=== PATIENT | female | born 1935 | race Caucasian/White ===

== ENCOUNTER 2017-05-23 09:05 | Observation (INO) | payer MEDICARE, OTHER ==
--- NOTE | 2017-05-23 09:14 | EDM.PDOC ---
ED HPI GENERAL MEDICAL PROBLEM - General Chief Complaint: Gastrointestinal Problem Stated Complaint: [id number] THROWING UP THROUGH THE NIGHT Time Seen by Provider: 05/23/17 09:14 Source of Information: Reports: Patient, Old Records, RN, RN Notes Reviewed History Limitations: Reports: No Limitations - History of Present Illness INITIAL COMMENTS - FREE TEXT/NARRATIVE: Arrives from home by POV with c/o on onset of nausea and vomiting yesterday at 1500HRS. She slept through the night, but had more vomiting this morning. Pt reports the emesis initially had some food material, but also has been brown similar to when she had a GI bleed in the past. She also has felt some new Rt mid-abdominal bulging similar to past ventral hernias. Denies diarrhea or constipation, bloody stool, fever, chills, or urinary Sx's. Admits to waxing and waning generalized upper abdominal pains. Onset Date: 05/22/17 Onset Time: 15:00 Duration: Waxing/Waning Location: Reports: Abdomen Quality: Reports: Ache Severity: Moderate Improves with: Reports: None Worsens with: Reports: None Associated Symptoms: Reports: No Other Symptoms - Related Data Allergies Allergy/AdvReac Type Severity Reaction Status Date / Time atorvastatin calcium Allergy Muscle Verified 03/26/16 12:54 [From Lipitor] Aches codeine Allergy Nausea and Verified 03/26/16 12:54 Vomiting Penicillins Allergy Rash Verified 03/26/16 12:54 Sulfa (Sulfonamide Allergy Nausea and Verified 03/26/16 12:54 Antibiotics) Vomiting Home Meds: Home Meds Aspirin [Halfprin] 81 mg PO 0700 05/06/15 [History] Calcium Citrate/Vitamin D3 [Calcium Citrate + D] 1 tab PO DAILY 05/06/15 [ History] Dextran 70/Hypromellose [Artificial Tears] 1 drop EYEBOTH BID 05/06/15 [History] Ezetimibe/Simvastatin [Vytorin 10-20 mg Tablet] 1 tab PO .MON,WED,FRI BEDTIME [History] Multivitamin [Daily Multiple Vitamin] 1 tab PO DAILY 05/06/15 [History] Losartan [Cozaar] 25 mg PO BEDTIME 12/18/15 [History] Pantoprazole [ProTONIX] 40 mg PO 0630 12/18/15 [History] Sertraline [Zoloft] 25 mg PO DAILY 05/23/17 [History] Past Medical History HEENT History: Reports: Cataract, Impaired Vision Other HEENT History: WEARS CORRECTIVE LENSES Cardiovascular History: Reports: High Cholesterol, Hypertension Respiratory History: Reports: None, Other (See Below) Other Respiratory History: bronch/pna once before Gastrointestinal History: Reports: Diverticulosis, GI Bleed, Other (See Below) Other Gastrointestinal History: HERNIA OTHER; NAUSEA & VOMITING Genitourinary History: Reports: Acute Renal Failure, Chronic Renal Insuffiency, UTI, 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: Musculoskeletal History: Reports: Osteoarthritis, Other (See Below) Other Musculoskeletal History: bursitis to knees Neurological History: Reports: None Psychiatric History: Reports: None Endocrine/Metabolic History: Reports: Obesity/BMI 30+, Osteoporosis, Other (See Below) Other Endocrine/Metabolic History: IMPAIRED FASTING BLOOD SUGAR Hematologic History: Reports: Anesthesia Reaction Other Hematologic History: ANESTHESIA - N/V; Immunologic History: Reports: None Oncologic (Cancer) History: Reports: Breast, Malignant Melanoma Dermatologic History: Reports: Melanoma, Urticaria, Other (See Below) Other Dermatologic History: HX OF SENSITIVE SKIN , Melanoma 1998 - Infectious Disease History Infectious Disease History: Reports: Chicken Pox, Measles, Mumps - Past Surgical History GI Surgical History: Reports: Colonoscopy, EGD, Hernia, Abdominal Female Surgical History: Reports: Breast Biopsy, Mastectomy, Other (See Below ) Neurological Surgical History: Reports: None, Other (See Below) Oncologic Surgical History: Reports: Biopsy of Breast, Mastectomy Dermatological Surgical History: Reports: Skin Biopsy Social & Family History - Family History HEENT: Reports: Cataract, Glaucoma, Impaired Vision Cardiac: Reports: Arrhythmia Respiratory: Reports: Other (See Below) Other Respiratory Family Hisory: HX OF LUNG CANCER IN FATHER GI: Reports: None Musculoskeletal: Reports: Arthritis, Osteoarthritis Neurological: Reports: Alzheimers Disease Psychiatric: Reports: None Endocrine/Metabolic: Reports: Hyperthyroidism, Obesity/MBI 30+, Osteoporosis Hematologic: Reports: Anemia Immunologic: Reports: None Dermatologic: Reports: None Oncologic: Reports: Colon, Esophageal, Lung - Tobacco Use Smoking Status *Q: Never Smoker Used Tobacco, but Quit: Yes Month Tobacco Last Used: 04/23/1969 Second Hand Smoke Exposure: No - Caffeine Use Caffeine Use: Reports: Soda, Tea - Recreational Drug Use Recreational Drug Use: No - Living Situation & Occupation Living situation: Reports: , with Spouse Occupation: Retired ED ROS GENERAL - Review of Systems Review Of Systems: ROS reveals no pertinent complaints other than HPI. ED EXAM, GENERAL - Physical Exam Exam: See Below Exam Limited By: No Limitations General Appearance: Alert, WD/WN, No Apparent Distress Eye Exam: Bilateral Eye: Normal Inspection (no scleral icterus) Nose: Normal Inspection Throat/Mouth: Normal Lips, Normal Teeth, Normal Gums, Normal Oropharynx, Normal Voice, No Airway Compromise, Other (dry oral membranes) Head: Atraumatic, Normocephalic Neck: Normal Inspection, Supple, Non-Tender, Full Range of Motion Respiratory/Chest: No Respiratory Distress, Lungs Clear, Normal Breath Sounds, No Accessory Muscle Use, Chest Non-Tender Cardiovascular: Regular Rate, Rhythm, No Edema GI/Abdominal: Soft, No Distention, No Abnormal Bruit, Tender (mildly tender to palpation at epigastric and Rt mid-abdomen), Abnormal Bowel Sounds (hypoactive, tympanci bowel sounds), Hernia (Rt ventral). No: Guarding, Rigid, Rebound (Female) Exam: Deferred Rectal (Female) Exam: Deferred Back Exam: Normal Inspection. No: CVA Tenderness (L), CVA Tenderness (R) Extremities: Normal Inspection, Non-Tender, No Pedal Edema Neurological: Alert, Oriented, CN II-XII Intact, Normal Cognition, Normal Gait, No Motor/Sensory Deficits Psychiatric: Normal Affect, Normal Mood Skin Exam: Warm, Dry, Intact, Normal Color, No Rash Course - Vital Signs Last Recorded V/S: Last Vital Signs Temp 36.4 C 05/23/17 09:18 Pulse 93 05/23/17 09:18 Resp 16 05/23/17 09:18 BP 94/67 05/23/17 09:18 Pulse Ox 97 05/23/17 09:18 - Orders/Labs/Meds Orders: Active Orders 24 hr Category Date Time Status Peripheral IV Care [RC] . DIRECTED Care 05/23/17 09:37 Active UA W/MICROSCOPIC [URIN] Stat Lab 05/23/17 09:36 Ordered Sodium Chloride 0.9% [Normal Saline] 1,000 ml Med 05/23/17 11:58 Active IV .BOLUS Sodium Chloride 0.9% [Saline Flush] Med 05/23/17 09:37 Active 10 ml FLUSH ASDIRECTED PRN Peripheral IV Insertion Adult [OM.PC] Stat Oth 05/23/17 09:36 Ordered Medication Orders Sodium Chloride (Normal Saline) 1,000 mls @ 999 mls/hr IV .BOLUS ONE Stop: 05/23/17 12:58 Last Admin: 05/23/17 12:01 Dose: 999 mls/hr Sodium Chloride (Saline Flush) 10 ml FLUSH ASDIRECTED PRN PRN Reason: Keep Vein Open Last Admin: 05/23/17 10:06 Dose: 10 ml Labs: Laboratory Tests 05/23/17 05/23/17 05/23/17 Range/Units 09:58 09:58 09:58 WBC 11.1 H (5.0-10.0) 10^3/uL RBC 4.07 L (4.2-5.4) 10^6/uL Hgb 12.1 (12.0-16.0) g/dL Hct 35.8 L (37.0-47.0) % MCV 88.0 (80-100) fL MCH 29.7 (27.0-34.0) pg MCHC 33.8 (33.0-35.0) g/dL Plt Count 349 D (150-450) 10^3/uL Neut % (Auto) 82.6 H (42.2-75.2) % Lymph % (Auto) 8.6 L (20.5-50.1) % [place] % (Auto) 8.4 H (2-8) % Eos % (Auto) 0.2 L (1.0-3.0) % Baso % (Auto) 0.2 (0.0-1.0) % Sodium 135 (135-145) mmol/L Potassium 4.0 (3.6-5.0) mmol/L Chloride 99 L (101-111) mmol/L Carbon Dioxide 23.0 (21.0-31.0) mmol/L Anion Gap 17.0 BUN 33 H (7-18) mg/dL Creatinine 1.5 H (0.6-1.3) mg/dL Est Cr Clr Drug Dosing 27.36 mL/min Estimated GFR (MDRD) 33 BUN/Creatinine Ratio 22.00 Glucose 106 H (74-105) mg/dL Lactic Acid 1.8 (0.5-2.2) mmol/L Calcium 9.5 (8.4-10.2) mg/dl Magnesium 2.0 (1.8-2.5) mg/dL Total Bilirubin 0.9 (0.2-1.0) mg/dL AST 30 (10-42) IU/L ALT 17 (10-60) IU/L Alkaline Phosphatase 53 (42-121) IU/L Total Protein 8.1 (6.7-8.2) g/dl Albumin 4.6 (3.2-5.5) g/dl Globulin 3.5 Albumin/Globulin Ratio 1.31 Amylase 87 (28-100) U/L Lipase 36 (22-51) U/L Meds: Medications Generic Name Dose Route Start Last Admin Trade Name Freq PRN Reason Stop Dose Admin Sodium Chloride 1,000 mls @ 999 mls/hr 05/23/17 11:58 05/23/17 12:01 Normal Saline IV 05/23/17 12:58 999 mls/hr .BOLUS ONE Administration Sodium Chloride 10 ml 05/23/17 09:37 05/23/17 10:06 Saline Flush FLUSH 10 ml ASDIRECTED PRN Administration Keep Vein Open Discontinued Medications Generic Name Dose Route Start Last Admin Trade Name Freq PRN Reason Stop Dose Admin Sodium Chloride 1,000 mls @ 999 mls/hr 05/23/17 09:40 05/23/17 10:06 Normal Saline IV 05/23/17 10:40 999 mls/hr .BOLUS ONE Administration Ondansetron HCl 4 mg 05/23/17 09:40 05/23/17 10:06 Zofran IV 05/23/17 09:41 4 mg ONETIME ONE Administration - Radiology Interpretation Free Text/Narrative:: IMPRESSION: 1. Small supraumbilical ventral hernia containing short segment of small bowel, no sign of obstruction or strangulation. 2. Partial small bowel obstruction versus ileus, transition appears to be at or near the anastomotic site. 3. Thickened wall gastric cardia, may be secondary to under distention, recommend followup. 4. Cholelithiasis. 5. Right ovarian cyst of 3.5 x 4 point centimeter. Thank you for allowing us to participate in the care of your patient. Dictated and Authenticated by: Nidia Wade MD 05/23/2017 12:03 PM Central Time ([place] & [place]) Departure - Departure Time of Disposition: 12:42 (admit to Dr. Fernández) Disposition: Refer to Observation Condition: Fair, Undetermined Clinical Impression: Small bowel obstruction - Discharge Information - My Orders Last 24 Hours: My Active Orders 05/23/17 09:36 UA W/MICROSCOPIC [URIN] Stat Peripheral IV Insertion Adult [OM.PC] Stat 05/23/17 09:37 Peripheral IV Care [RC] . DIRECTED Sodium Chloride 0.9% [Saline Flush] 10 ml FLUSH ASDIRECTED PRN 05/23/17 11:58 Sodium Chloride 0.9% [Normal Saline] 1,000 ml IV .BOLUS - Assessment/Plan Last 24 Hours: My Active Orders 05/23/17 09:36 UA W/MICROSCOPIC [URIN] Stat Peripheral IV Insertion Adult [OM.PC] Stat 05/23/17 09:37 Peripheral IV Care [RC] . DIRECTED Sodium Chloride 0.9% [Saline Flush] 10 ml FLUSH ASDIRECTED PRN 05/23/17 11:58 Sodium Chloride 0.9% [Normal Saline] 1,000 ml IV .BOLUS
[2017-05-23] MEDS ORDERED: Sodium Chloride 0.9% 10 ML Syringe FLUSH PRN ×2 (09:37→14:51)
[2017-05-23] MEDS ORDERED: Ondansetron 4 MG/2 ML SDV IV ONE (09:40)
[2017-05-23] MEDS ORDERED: Sodium Chloride 0.9% 1,000 ML IV ONE ×2 (09:40→11:58)
[2017-05-23] MEDS ORDERED: Ondansetron 4 MG/2 ML SDV IVPUSH PRN (14:51)
[2017-05-23] MEDS: Dextrose 5%-0.9% NaCl 1,000 ML IV SCH ×2 (15:09→23:15)
--- NOTE | 2017-05-23 15:09 | PCM.HP ---
H&P History of Present Illness - General Date of Service: 05/23/17 Admit Problem/Dx: Admission Diagnosis/Problem Admission Diagnosis/Problem Small bowel obstruction Source of Information: Patient History Limitations: Reports: No Limitations - History of Present Illness Initial Comments - Free Text/Narative: 81 yo F with PMH of breast cancer (s/p mastectomy, tamoxifen), osteoarthritis, peptic ulcer bleed, umbilical hernia, intestinal obstruction s/p surgery who comes to the ED with one day history of nausea/vomiting and abdominal pain. Nausea and vomiting started at 5 pm yesterday. Onset was sudden. Vomitus consisted of recently ingested feed. Had two episodes yesterday and multiple episodes of vomiting today. Abdominal pain was in the right lower quadrant, 6/10 in max intensity, intermittent/waxing and waning pain Symptoms continued till today and that is why she came to the ED. No fever, no shortness of breath, no chest pain, no hematemesis, no hematochezia , no melena SH: non-smoker, doesn't drink alcohol Onset of Symptoms: Reports: Sudden Symptom Onset Date: 05/22/17 Location: Reports: Abdomen Quality: Reports: Ache Severity: Moderate Associated Symptoms: Reports: Nausea/Vomiting - Related Data Allergies/Adverse Reactions: Allergies Allergy/AdvReac Type Severity Reaction Status Date / Time atorvastatin calcium Allergy Muscle Verified 05/23/17 12:47 [From Lipitor] Aches codeine Allergy Nausea and Verified 05/23/17 12:47 Vomiting Penicillins Allergy Rash Verified 05/23/17 12:47 Sulfa (Sulfonamide Allergy Nausea and Verified 05/23/17 12:47 Antibiotics) Vomiting Home Medications: Home Meds Aspirin [Halfprin] 81 mg PO 0700 05/06/15 [History] Calcium Citrate/Vitamin D3 [Calcium Citrate + D] 1 tab PO DAILY 05/06/15 [ History] Dextran 70/Hypromellose [Artificial Tears] 1 drop EYEBOTH BID PRN 05/06/15 [ History] Ezetimibe/Simvastatin [Vytorin 10-20 mg Tablet] 1 tab PO .MON,WED,FRI AM [History] Multivitamin [Daily Multiple Vitamin] 1 tab PO DAILY 05/06/15 [History] Losartan [Cozaar] 25 mg PO BEDTIME 12/18/15 [History] Pantoprazole [ProTONIX] 40 mg PO 0630 12/18/15 [History] Sertraline [Zoloft] 25 mg PO DAILY 05/23/17 [History] Past Medical History HEENT History: Reports: Cataract, Impaired Vision Other HEENT History: WEARS CORRECTIVE LENSES Cardiovascular History: Reports: High Cholesterol Respiratory History: Reports: None, Other (See Below) Other Respiratory History: bronch/pna once before Gastrointestinal History: Reports: Diverticulosis, GI Bleed, Other (See Below) Other Gastrointestinal History: HERNIA OTHER; NAUSEA & VOMITING Genitourinary History: Reports: Acute Renal Failure, Chronic Renal Insuffiency, UTI, 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: Musculoskeletal History: Reports: Osteoarthritis, Other (See Below) Other Musculoskeletal History: bursitis to knees Neurological History: Reports: None Psychiatric History: Reports: None Endocrine/Metabolic History: Reports: Obesity/BMI 30+, Osteoporosis, Other (See Below) Other Endocrine/Metabolic History: IMPAIRED FASTING BLOOD SUGAR Hematologic History: Reports: Anesthesia Reaction Other Hematologic History: ANESTHESIA - N/V; Immunologic History: Reports: None Oncologic (Cancer) History: Reports: Breast, Malignant Melanoma Dermatologic History: Reports: Melanoma, Urticaria, Other (See Below) Other Dermatologic History: HX OF SENSITIVE SKIN , Melanoma 1998 - Infectious Disease History Infectious Disease History: Reports: Chicken Pox, Measles, Mumps - Past Surgical History Head Surgeries/Procedures: Reports: None HEENT Surgical History: Reports: None Cardiovascular Surgical History: Reports: None GI Surgical History: Reports: Colonoscopy, EGD, Hernia, Abdominal Female Surgical History: Reports: Breast Biopsy, Mastectomy, Other (See Below ) Neurological Surgical History: Reports: None Musculoskeletal Surgical History: Reports: Other (See Below) Other Musculoskeletal Surgeries/Procedures:: Back surgery 1982 Oncologic Surgical History: Reports: Biopsy of Breast, Mastectomy Dermatological Surgical History: Reports: Skin Biopsy Social & Family History - Family History Family Medical History: Noncontributory HEENT: Reports: Cataract, Glaucoma, Impaired Vision Cardiac: Reports: Arrhythmia Respiratory: Reports: Other (See Below) Other Respiratory Family Hisory: HX OF LUNG CANCER IN FATHER GI: Reports: None Musculoskeletal: Reports: Arthritis, Osteoarthritis Neurological: Reports: Alzheimers Disease Psychiatric: Reports: None Endocrine/Metabolic: Reports: Hyperthyroidism, Obesity/MBI 30+, Osteoporosis Hematologic: Reports: Anemia Immunologic: Reports: None Dermatologic: Reports: None Oncologic: Reports: Colon, Esophageal, Lung - Tobacco Use Smoking Status *Q: Former Smoker Years of Tobacco use: 5 Packs/Tins Daily: 0.5 Used Tobacco, but Quit: Yes Month Tobacco Last Used: August Second Hand Smoke Exposure: No - Caffeine Use Caffeine Use: Reports: Tea - Alcohol Use Date of Last Drink: 05/17/17 Time of Last Drink: 18:00 - Recreational Drug Use Recreational Drug Use: No - Living Situation & Occupation Living situation: Reports: , with Spouse Occupation: Retired H&P Review of Systems - Review of Systems: Review Of Systems: See Below General: Reports: No Symptoms HEENT: Reports: No Symptoms Pulmonary: Reports: No Symptoms Cardiovascular: Reports: No Symptoms Gastrointestinal: Reports: Abdominal Pain, Nausea, Vomiting Genitourinary: Reports: No Symptoms Musculoskeletal: Reports: No Symptoms Skin: Reports: No Symptoms Exam - Exam Exam: See Below - Vital Signs Vital Signs: Last Vital Signs Temp 37.0 C 05/23/17 12:46 Pulse 70 05/23/17 12:46 Resp 20 05/23/17 12:46 BP 132/59 L 05/23/17 12:46 Pulse Ox 100 05/23/17 12:46 Weight: 80.649 kg - Exam General: Alert, Oriented, 4 HEENT: PERRLA, Hearing Intact, Mucosa Moist & [place], Nares Patent, Normal Nasal Septum, Posterior Pharynx Clear, Conjunctiva Clear, EOMI, EACs Clear, TMs Clear Neck: Supple, Trachea Midline, 2 Lungs: Clear to Auscultation, Normal Respiratory Effort Cardiovascular: Regular Rate GI/Abdominal Exam: Soft, Non-Tender, Abnormal Bowel Sounds, Other (hypoactive bowel sounds. ) - Patient Data Result Diagrams: 05/23/17 09:58 05/23/17 09:58 *Q Meaningful Use (ADM) - VTE *Q VTE Criteria *Q: - Stroke *Q Stroke Criteria *Q: - AMI *Q AMI Criteria *Q: Problem List Initiated/Reviewed/Updated: Yes Orders Last 24hrs: Active Orders 24 hr Category Date Time Status Patient Status [ADT] Routine ADT 05/23/17 14:51 Active Intake and Output [RC] QSHIFT Care 05/23/17 14:53 Active Oxygen Therapy [RC] PRN Care 05/23/17 14:51 Active Peripheral IV Care [RC] . DIRECTED Care 05/23/17 14:54 Active Up ad Diamond [RC] ASDIRECTED Care 05/23/17 14:51 Active VTE/DVT Education [RC] PER UNIT ROUTINE Care 05/23/17 14:51 Active Vital Signs [RC] Q4H Care 05/23/17 14:51 Active Nothing per Oral Now Diet [DIET] Diet 05/23/17 Dinner Active BASIC METABOLIC PANEL,BMP [CHEM] AM Lab 05/24/17 05:11 Ordered CBC WITH AUTO DIFF [HEME] AM Lab 05/24/17 05:11 Ordered MAGNESIUM [CHEM] AM Lab 05/24/17 05:11 Ordered PHOSPHORUS [CHEM] AM Lab 05/24/17 05:11 Ordered Dextrose 5%-0.9% NaCl [Dextrose 5%-Normal Saline] 1,000 Med 05/23/17 15:00 Active ml IV ASDIRECTED Heparin Sodium Med 05/23/17 22:00 Active 5,000 units SUBCUT Q8HR Ondansetron [Zofran] Med 05/23/17 14:51 Active 4 mg IVPUSH Q4H PRN Pantoprazole [ProTONIX IV] Med 05/23/17 15:00 Active 40 mg IVPUSH DAILY Sodium Chloride 0.9% [Saline Flush] Med 05/23/17 14:51 Active 10 ml FLUSH ASDIRECTED PRN Nasogastric Orogastric Tube Insertion [OM.PC] Urgent Oth 05/23/17 14:53 Ordered Peripheral IV Insertion Adult [OM.PC] Routine Oth 05/23/17 14:51 Ordered Saline Lock Insert [OM.PC] Routine Oth 05/23/17 14:51 Ordered Resuscitation Status Routine Resus Stat 05/23/17 14:51 Ordered Medication Orders Heparin Sodium (Porcine) (Heparin Sodium) 5,000 units SUBCUT Q8HR BRII Dextrose/Sodium Chloride (Dextrose 5%-Normal Saline) 1,000 mls @ 125 mls/hr IV ASDIRECTED BRII Ondansetron HCl (Zofran) 4 mg IVPUSH Q4H PRN PRN Reason: Nausea/Vomiting Pantoprazole Sodium (Protonix Iv) 40 mg IVPUSH DAILY BRII Sodium Chloride (Saline Flush) 10 ml FLUSH ASDIRECTED PRN PRN Reason: Keep Vein Open Last Admin: 05/23/17 10:06 Dose: 10 ml Sodium Chloride (Saline Flush) 10 ml FLUSH ASDIRECTED PRN PRN Reason: Keep Vein Open Assessment/Plan Comment:: 81 yo F with PMH of umbilical hernia, intestinal obstruction s/p surgery p/w nausea, vomiting and abdminal pain. CT abdomen shows partial small bowel obstruction with transition point at site of anastomosis. #Partial SBO - CT abdomen shows partial small bowel obstruction with transition point at site of anastomosis. - NPO - NG tube decompression - IV fluid hydration - IV Zofran PRN vomiting - Pain management #REBEKAH - Cr 1.5, baseline 1.1 - likely pre-renal secondary to vomiting - IV fluid hydration - trend Cr daily - avoid nephrotoxic agents #DVT ppx - SC heparin
[2017-05-23] MEDS: Pantoprazole 40 MG Vial IVPUSH SCH (15:13)
[2017-05-23] MEDS ORDERED: cefTRIAXone 1 GM in Sodium Chloride 0.9% 50 ML IV SCH (20:00)
[2017-05-23] MEDS: cefTRIAXone 1 GM Vial IVPUSH SCH (20:52)
[2017-05-23] MEDS: Heparin Sodium 5,000 Units/ML Vial SUBCUT SCH (21:58)
[2017-05-24] MEDS: Heparin Sodium 5,000 Units/ML Vial SUBCUT SCH ×3 (06:20→21:32)
[2017-05-24] MEDS: Dextrose 5%-0.9% NaCl 1,000 ML IV SCH ×3 (07:03→23:21)
[2017-05-24] MEDS: Pantoprazole 40 MG Vial IVPUSH SCH (08:45)
--- NOTE | 2017-05-24 12:27 | PCM.PN ---
- General Info Date of Service: 05/24/17 Admission Dx/Problem (Free Text): Admission Diagnosis/Problem Admission Diagnosis/Problem Small bowel obstruction Subjective Update: Patient seen and examined by me Feels much better today NG tube in place, drainage is decreased No nausea or vomiting passing flatus no BMs Functional Status: Reports: Pain Controlled - Review of Systems General: Reports: No Symptoms HEENT: Reports: No Symptoms Pulmonary: Reports: No Symptoms Cardiovascular: Reports: No Symptoms Gastrointestinal: Reports: No Symptoms Genitourinary: Reports: No Symptoms - Patient Data Vitals - Most Recent: Last Vital Signs Temp 37.0 C 05/24/17 07:57 Pulse 65 05/24/17 07:57 Resp 18 05/24/17 07:57 BP 104/54 L 05/24/17 07:57 Pulse Ox 100 05/24/17 07:57 Weight - Most Recent: 80.649 kg I&O - Last 24 Hours: Intake & Output 05/23/17 05/24/17 05/24/17 22:59 06:59 14:59 Intake Total 100 Output Total 500 100 Balance -400 -100 Lab Results Last 24 Hours: Laboratory Results - last 24 hr 05/23/17 05/24/17 05/24/17 Range/Units 17:55 06:20 06:20 WBC 7.0 (5.0-10.0) 10^3/uL RBC 3.43 L (4.2-5.4) 10^6/uL Hgb 10.1 L D (12.0-16.0) g/dL Hct 31.2 L (37.0-47.0) % MCV 91.0 D (80-100) fL MCH 29.4 (27.0-34.0) pg MCHC 32.4 L (33.0-35.0) g/dL Plt Count 256 D (150-450) 10^3/uL Neut % (Auto) 71.1 (42.2-75.2) % Lymph % (Auto) 17.0 L (20.5-50.1) % [place] % (Auto) 9.9 H (2-8) % Eos % (Auto) 1.7 (1.0-3.0) % Baso % (Auto) 0.3 (0.0-1.0) % Sodium 141 (135-145) mmol/L Potassium 3.6 (3.6-5.0) mmol/L Chloride 110 (101-111) mmol/L Carbon Dioxide 22.0 (21.0-31.0) mmol/L Anion Gap 12.6 BUN 21 H (7-18) mg/dL Creatinine 1.1 (0.6-1.3) mg/dL Est Cr Clr Drug Dosing 37.32 mL/min Estimated GFR (MDRD) 48 Glucose 96 (74-105) mg/dL Calcium 8.4 (8.4-10.2) mg/dl Phosphorus 4.0 (2.5-4.6) mg/dL Magnesium 1.8 (1.8-2.5) mg/dL Urine Color Yellow (YELLOW) Urine Appearance Cloudy (CLEAR) Urine pH 7.5 (5.0-9.0) Ur Specific [place] 1.015 (1.005-1.030) Urine Protein 30 H (NEGATIVE) Urine Glucose (UA) Negative (NEGATIVE) Urine Ketones Trace H (NEGATIVE) Urine Occult Blood Negative (NEGATIVE) Urine Nitrite Negative (NEGATIVE) Urine Bilirubin Small H (NEGATIVE) Urine Urobilinogen 0.2 (0.2-1.0) mg/dL Ur Leukocyte Esterase Large H (NEGATIVE) Urine RBC 0-5 /HPF Urine WBC >100 H (0-5/HPF) /HPF Ur Epithelial Cells Moderate H /HPF Urine Bacteria Many H (0-FEW/HPF) /HPF Med Orders - Current: Current Medications Ceftriaxone Sodium (Rocephin) 1 gm IVPUSH Q24H [facility] Last Admin: 05/23/17 20:52 Dose: 1 gm Heparin Sodium (Porcine) (Heparin Sodium) 5,000 units SUBCUT Q8HR [facility] Last Admin: 05/24/17 06:20 Dose: 5,000 units Dextrose/Sodium Chloride (Dextrose 5%-Normal Saline) 1,000 mls @ 125 mls/hr IV ASDIRECTED [facility] Last Admin: 05/24/17 07:03 Dose: 125 mls/hr Ondansetron HCl (Zofran) 4 mg IVPUSH Q4H PRN PRN Reason: Nausea/Vomiting Pantoprazole Sodium (Protonix Iv) 40 mg IVPUSH DAILY [facility] Last Admin: 05/24/17 08:45 Dose: 40 mg Sodium Chloride (Saline Flush) 10 ml FLUSH ASDIRECTED PRN PRN Reason: Keep Vein Open Discontinued Medications Sodium Chloride (Normal Saline) 1,000 mls @ 999 mls/hr IV .BOLUS ONE Stop: 05/23/17 10:40 Last Admin: 05/23/17 10:06 Dose: 999 mls/hr Sodium Chloride (Normal Saline) 1,000 mls @ 999 mls/hr IV .BOLUS ONE Stop: 05/23/17 12:58 Last Infusion: 05/23/17 14:15 Dose: Infused Ceftriaxone Sodium 1 gm/ (Sodium Chloride) 50 mls @ 100 mls/hr IV Q24H [facility] Last Admin: 05/23/17 20:27 Dose: Not Given Ondansetron HCl (Zofran) 4 mg IV ONETIME ONE Stop: 05/23/17 09:41 Last Admin: 05/23/17 10:06 Dose: 4 mg Sodium Chloride (Saline Flush) 10 ml FLUSH ASDIRECTED PRN PRN Reason: Keep Vein Open Last Admin: 05/23/17 10:06 Dose: 10 ml - Exam General: Alert, Oriented HEENT: Pupils Equal, Pupils Reactive, EOMI, Mucous Membr. Moist/[place] Neck: Supple Lungs: Clear to Auscultation, Normal Respiratory Effort Cardiovascular: Regular Rate, Regular Rhythm GI/Abdominal Exam: Normal Bowel Sounds, Soft, Non-Tender, No Organomegaly, No Distention, No Abnormal Bruit, No Mass, Pelvis Stable - Problem List Review Problem List Initiated/Reviewed/Updated: Yes - My Orders Last 24 Hours: My Active Orders 05/23/17 15:00 Dextrose 5%-0.9% NaCl [Dextrose 5%-Normal Saline] 1,000 ml IV ASDIRECTED Pantoprazole [ProTONIX IV] 40 mg IVPUSH DAILY 05/23/17 15:21 H PYLORI STOOL ANTIGEN [MREF] Routine 05/23/17 21:00 cefTRIAXone [Rocephin] 1 gm IVPUSH Q24H 05/24/17 Lunch Clear Liquid Diet [DIET] - Plan Plan:: 81 yo F with PMH of umbilical hernia, intestinal obstruction s/p surgery p/w nausea, vomiting and abdminal pain. CT abdomen shows partial small bowel obstruction with transition point at site of anastomosis. #Partial SBO - improved symptoms, passing flatus - can start clear liquid diet - remove NG tube #REBEKAH - likely pre-renal secondary to vomiting - IV fluid hydration - trend Cr daily - avoid nephrotoxic agents #DVT ppx - SC heparin
[2017-05-24] MEDS ORDERED: Polyvinyl Alcohol 1.4% Ophth Soln 15 ML Bottle EYEBOTH PRN (16:40)
[2017-05-24] MEDS: Calcium Carbonate/Vitamin D3 1250 MG-200 Unit Tab PO SCH (17:14)
[2017-05-24] MEDS: Multivitamins,Therapeutic Tab PO SCH (17:14)
[2017-05-24] MEDS: Sertraline 50 MG Tab PO SCH (17:14)
[2017-05-24] MEDS ORDERED: Simvastatin 10 MG Tab PO SCH (21:00)
[2017-05-24] MEDS ORDERED: Losartan 25 MG Tab PO SCH (21:00)
[2017-05-24] MEDS ORDERED: Ezetimibe 10 MG Tab PO SCH (21:00)
[2017-05-24] MEDS: cefTRIAXone 1 GM Vial IVPUSH SCH (21:36)
[2017-05-25] MEDS: Heparin Sodium 5,000 Units/ML Vial SUBCUT SCH (05:15)
[2017-05-25] MEDS ORDERED: Aspirin 81 MG Tab.EC PO SCH (07:00)
[2017-05-25 07:25] VITALS: BP 105/52
[2017-05-25] MEDS: Multivitamins,Therapeutic Tab PO SCH (08:40)
[2017-05-25] MEDS: Sertraline 50 MG Tab PO SCH (08:40)
[2017-05-25] MEDS: Calcium Carbonate/Vitamin D3 1250 MG-200 Unit Tab PO SCH (08:40)
[2017-05-25] MEDS: Pantoprazole 40 MG Vial IVPUSH SCH (08:50)
--- NOTE | 2017-05-25 10:01 | PCM.DCSUM1 ---
Discharge Summary - Hospital Course Free Text/Narrative:: 81 yo F with PMH of breast cancer (s/p mastectomy, tamoxifen), osteoarthritis, peptic ulcer bleed, umbilical hernia, intestinal obstruction s/p surgery who comes to the ED with one day history of nausea/vomiting and abdominal pain. CT abd showed Partial bowel obstruction. NG tube decompression and IV fluids were started. NG tube was removed the next day after symptoms subsided and she was started on clear liquid which she tolerated. She was advanced to regular diet today, tolerated it well, has had 2 BMs and doing well. Discharge OK. Low residue/low fibre diet recommended. To follow up with PCP. - Discharge Data Discharge Date: 05/25/17 Discharge Disposition: Home, Self-Care 01 Condition: Good - Patient Instructions Diet: GI Soft/Low Residue/Low Fiber Activity: As Tolerated Showering/Bathing: July Shower - Discharge Plan Home Medications: Home Meds Aspirin [Halfprin] 81 mg PO 0700 05/06/15 [History] Calcium Citrate/Vitamin D3 [Calcium Citrate + D] 1 tab PO DAILY 05/06/15 [ History] Dextran 70/Hypromellose [Artificial Tears] 1 drop EYEBOTH BID PRN 05/06/15 [ History] Ezetimibe/Simvastatin [Vytorin 10-20 mg Tablet] 1 tab PO .MON,WED,FRI AM [History] Multivitamin [Daily Multiple Vitamin] 1 tab PO DAILY 05/06/15 [History] Losartan [Cozaar] 25 mg PO BEDTIME 12/18/15 [History] Pantoprazole [ProTONIX] 40 mg PO 0630 12/18/15 [History] Sertraline [Zoloft] 25 mg PO DAILY 05/23/17 [History] Patient Handouts: Small Bowel Obstruction, [id number] Forms: ED Department Discharge Referrals: Giulia Cohen MD [Primary Care Provider] - - Discharge Summary/Plan Comment DC Time >30 min.: Yes - General Info Admission Dx/Problem (Free Text: Admission Diagnosis/Problem Admission Diagnosis/Problem Small bowel obstruction Subjective Update: Patient seen and examined by me Feels much better today tolerated full breakfast this morning No nausea or vomiting passing flatus 2 BMs overnight - Review of Systems General: Reports: No Symptoms HEENT: Reports: No Symptoms Pulmonary: Reports: No Symptoms Cardiovascular: Reports: No Symptoms Gastrointestinal: Reports: No Symptoms Genitourinary: Reports: No Symptoms Musculoskeletal: Reports: No Symptoms - Patient Data Vitals - Most Recent: Last Vital Signs Temp 36.9 C 05/25/17 07:24 Pulse 68 05/25/17 07:24 Resp 20 05/25/17 07:24 BP 105/52 L 05/25/17 07:24 Pulse Ox 98 05/25/17 07:24 Weight - Most Recent: 80.649 kg I&O - Last 24 hours: Intake & Output 05/24/17 05/25/17 05/25/17 22:59 06:59 14:59 Intake Total 1025 1750 990 Output Total 600 600 Balance 425 1150 990 Lab Results - Last 24 hrs: Laboratory Results - last 24 hr 05/25/17 05/25/17 Range/Units 07:26 07:26 WBC 5.6 (5.0-10.0) 10^3/uL RBC 3.35 L (4.2-5.4) 10^6/uL Hgb 9.9 L (12.0-16.0) g/dL Hct 30.7 L (37.0-47.0) % MCV 91.6 (80-100) fL MCH 29.6 (27.0-34.0) pg MCHC 32.2 L (33.0-35.0) g/dL Plt Count 225 (150-450) 10^3/uL Neut % (Auto) 63.6 (42.2-75.2) % Lymph % (Auto) 18.6 L (20.5-50.1) % [place] % (Auto) 12.8 H (2-8) % Eos % (Auto) 4.6 H (1.0-3.0) % Baso % (Auto) 0.4 (0.0-1.0) % Sodium 138 (135-145) mmol/L Potassium 3.9 (3.6-5.0) mmol/L Chloride 109 (101-111) mmol/L Carbon Dioxide 21.0 (21.0-31.0) mmol/L Anion Gap 11.9 BUN 11 (7-18) mg/dL Creatinine 1.0 (0.6-1.3) mg/dL Est Cr Clr Drug Dosing 41.05 mL/min Estimated GFR (MDRD) 53 Glucose 89 (74-105) mg/dL Calcium 8.4 (8.4-10.2) mg/dl Magnesium 1.7 L (1.8-2.5) mg/dL Med Orders - Current: Current Medications Artificial Tears (Liquitears 1.4% Ophth Soln) 0 ml EYEBOTH BID PRN PRN Reason: Dry Eyes Aspirin (Halfprin) 81 mg PO 0700 [facility] Last Admin: 05/25/17 08:40 Dose: 81 mg Calcium Carbonate (Calcium Carbonate/Vitamin D 1250 Mg-200 Unit) 1 tab PO DAILY [facility] Last Admin: 05/25/17 08:40 Dose: 1 tab Ceftriaxone Sodium (Rocephin) 1 gm IVPUSH Q24H [facility] Last Admin: 05/24/17 21:36 Dose: 1 gm Ezetimibe (Zetia) 10 mg PO MoWeFr@2100 [facility] Last Admin: 05/24/17 21:20 Dose: 10 mg Heparin Sodium (Porcine) (Heparin Sodium) 5,000 units SUBCUT Q8HR [facility] Last Admin: 05/25/17 05:15 Dose: 5,000 units Dextrose/Sodium Chloride (Dextrose 5%-Normal Saline) 1,000 mls @ 125 mls/hr IV ASDIRECTED [facility] Last Admin: 05/24/17 23:21 Dose: 125 mls/hr Losartan Potassium (Cozaar) 25 mg PO BEDTIME [facility] Last Admin: 05/24/17 21:19 Dose: 25 mg Multivitamins (Thera) 1 each PO DAILY [facility] Last Admin: 05/25/17 08:40 Dose: 1 each Ondansetron HCl (Zofran) 4 mg IVPUSH Q4H PRN PRN Reason: Nausea/Vomiting Pantoprazole Sodium (Protonix Iv) 40 mg IVPUSH DAILY [facility] Last Admin: 05/25/17 08:50 Dose: 40 mg Sertraline HCl (Zoloft) 25 mg PO DAILY [facility] Last Admin: 05/25/17 08:40 Dose: 25 mg Simvastatin (Zocor) 20 mg PO MoWeFr@2100 [facility] Last Admin: 05/24/17 21:20 Dose: 20 mg Sodium Chloride (Saline Flush) 10 ml FLUSH ASDIRECTED PRN PRN Reason: Keep Vein Open Last Admin: 05/24/17 21:34 Dose: 10 ml Discontinued Medications Sodium Chloride (Normal Saline) 1,000 mls @ 999 mls/hr IV .BOLUS ONE Stop: 05/23/17 10:40 Last Admin: 05/23/17 10:06 Dose: 999 mls/hr Sodium Chloride (Normal Saline) 1,000 mls @ 999 mls/hr IV .BOLUS ONE Stop: 05/23/17 12:58 Last Infusion: 05/23/17 14:15 Dose: Infused Ceftriaxone Sodium 1 gm/ (Sodium Chloride) 50 mls @ 100 mls/hr IV Q24H [facility] Last Admin: 05/23/17 20:27 Dose: Not Given Ondansetron HCl (Zofran) 4 mg IV ONETIME ONE Stop: 05/23/17 09:41 Last Admin: 05/23/17 10:06 Dose: 4 mg Sodium Chloride (Saline Flush) 10 ml FLUSH ASDIRECTED PRN PRN Reason: Keep Vein Open Last Admin: 05/23/17 10:06 Dose: 10 ml - Exam General: Reports: Alert, Oriented HEENT: Reports: Pupils Equal, Pupils Reactive, EOMI, Mucous Membr. Moist/[place] Neck: Reports: Supple Lungs: Reports: Clear to Auscultation, Normal Respiratory Effort Cardiovascular: Reports: Regular Rate, Regular Rhythm GI/Abdominal Exam: Normal Bowel Sounds, Soft, Non-Tender, No Organomegaly, No Distention, No Abnormal Bruit, No Mass, Pelvis Stable *Q Meaningful Use (DIS) - VTE *Q VTE Criteria *Q: - Stroke *Q Stroke Criteria *Q: - AMI *Q AMI Criteria *Q:
== END 2017-05-25 12:55 | disposition home or self-care (01) ==
LOC: DL.ED 09:05 → UNDOADMOB 12:26 → DL.MS 12:26
PROVIDERS: ADMIT Hospitalist; ATTEND Hospitalist
DX: K56.600 Partial intestinal obstruction, unspecified as to cause (principal); N17.9 Acute kidney failure, unspecified; Z79.82 Long term (current) use of aspirin; Z79.899 Other long term (current) drug therapy; Z88.0 Allergy status to penicillin; Z88.2 Allergy status to sulfonamides; Z88.8 Allergy status to other drugs, medicaments and biological substances
CPT/HCPCS: 36415; 74176; 80048; 80053; 81001; 82150; 83605; 83690; 83735; 84100; 85025; 87338; 96361; 96372; 96374; 96375; 96376; 99285; A9270; C9113; G0378; J0696; J1644; J2405; J7030; J7042; J7050

== ENCOUNTER 2019-04-03 09:48 | Inpatient (IN) | payer MEDICARE, OTHER ==
[~2019-04-03 09:48] MED LIST: Ondansetron 4 MG/2 ML SDV IVPUSH ONE
--- NOTE | 2019-04-03 09:52 | EDM.PDOC ---
ED HPI GENERAL MEDICAL PROBLEM - General Chief Complaint: Gastrointestinal Problem Stated Complaint: UNKNOWN Time Seen by Provider: 04/03/19 09:40 Source of Information: Reports: Patient History Limitations: Reports: No Limitations - History of Present Illness INITIAL COMMENTS - FREE TEXT/NARRATIVE: This 83 yo female patient reports to the ED due to nausea/vomiting (started ) and has had increased weakness throughout the weekend that has been getting worse. The patient reports she has not been able to keep much down for the past 4 days. The patient reports she dropped a waste can this morning just prior to calling EMS. The patient has had a history of dizziness, but her current symptoms are different than previous episodes. Onset Date: 03/30/19 Duration: Constant, Getting Worse Location: Reports: Abdomen Quality: Reports: Other Severity: Moderate Improves with: Reports: None Worsens with: Reports: None Context: Reports: Other Associated Symptoms: Reports: Nausea/Vomiting, Weakness - Related Data Allergies Allergy/AdvReac Type Severity Reaction Status Date / Time atorvastatin calcium Allergy Muscle Verified 04/03/19 09:36 [From Lipitor] Aches codeine Allergy Nausea and Verified 04/03/19 09:36 Vomiting Penicillins Allergy Rash Verified 04/03/19 09:36 Sulfa (Sulfonamide Allergy Nausea and Verified 04/03/19 09:36 Antibiotics) Vomiting Home Meds: Home Meds Aspirin [Halfprin] 81 mg PO 0700 05/06/15 [History] Calcium Citrate/Vitamin D3 [Calcium Citrate + D] 1 tab PO DAILY 05/06/15 [ History] Dextran 70/Hypromellose [Artificial Tears] 1 drop EYEBOTH BID PRN 05/06/15 [ History] Ezetimibe/Simvastatin [Vytorin 10-20 mg Tablet] 1 tab PO .MON,WED,FRI AM [History] Multivitamin [Daily Multiple Vitamin] 1 tab PO DAILY 05/06/15 [History] Losartan [Cozaar] 25 mg PO BEDTIME 12/18/15 [History] Pantoprazole [ProTONIX] 40 mg PO 0630 12/18/15 [History] Past Medical History HEENT History: Reports: Cataract, Impaired Vision Other HEENT History: WEARS CORRECTIVE LENSES Cardiovascular History: Reports: High Cholesterol Respiratory History: Reports: Other (See Below) Other Respiratory History: bronch/pna once before Gastrointestinal History: Reports: Cholelithiasis, Diverticulosis, GI Bleed, Other (See Below) Other Gastrointestinal History: Hernia Genitourinary History: Reports: Acute Renal Failure, Chronic Renal Insuffiency, UTI, Recurrent CIRCULAR SAW FILER History: Reports: Musculoskeletal History: Reports: Osteoarthritis, Other (See Below) Other Musculoskeletal History: bursitis to knees Neurological History: Reports: None Psychiatric History: Reports: None Endocrine/Metabolic History: Reports: Obesity/BMI 30+, Osteoporosis, Other (See Below) Other Endocrine/Metabolic History: Impaired fasting blood sugar. Hematologic History: Reports: Anesthesia Reaction Other Hematologic History: ANESTHESIA - N/V; Immunologic History: Reports: None Oncologic (Cancer) History: Reports: Breast, Malignant Melanoma Dermatologic History: Reports: Melanoma, Urticaria Other Dermatologic History: HX OF SENSITIVE SKIN , Melanoma 1998 - Infectious Disease History Infectious Disease History: Reports: Chicken Pox, Measles, Mumps - Past Surgical History Head Surgeries/Procedures: Reports: None HEENT Surgical History: Reports: None Cardiovascular Surgical History: Reports: None GI Surgical History: Reports: Colonoscopy, EGD, Hernia, Abdominal Female Surgical History: Reports: Breast Biopsy, Mastectomy, Other (See Below ) Other Female Surgeries/Procedures: L) Neurological Surgical History: Reports: None Musculoskeletal Surgical History: Reports: Other (See Below) Other Musculoskeletal Surgeries/Procedures:: Back surgery 1982 Oncologic Surgical History: Reports: Biopsy of Breast, Mastectomy Dermatological Surgical History: Reports: Skin Biopsy Social & Family History - Family History Family Medical History: Noncontributory HEENT: Reports: Cataract, Glaucoma, Impaired Vision Cardiac: Reports: Arrhythmia Respiratory: Reports: Other (See Below) Other Respiratory Family Hisory: HX OF LUNG CANCER IN FATHER GI: Reports: None Musculoskeletal: Reports: Arthritis, Osteoarthritis Neurological: Reports: Alzheimers Disease Psychiatric: Reports: None Endocrine/Metabolic: Reports: Hyperthyroidism, Obesity/MBI 30+, Osteoporosis Hematologic: Reports: Anemia Immunologic: Reports: None Dermatologic: Reports: None Oncologic: Reports: Colon, Esophageal, Lung - Tobacco Use Smoking Status *Q: Never Smoker Second Hand Smoke Exposure: No - Caffeine Use Caffeine Use: Reports: None - Recreational Drug Use Recreational Drug Use: No - Living Situation & Occupation Living situation: Reports: , with Spouse Occupation: Retired ED ROS GENERAL - Review of Systems Review Of Systems: Comprehensive ROS is negative, except as noted in HPI. ED EXAM, GI/ABD - Physical Exam Exam: See Below Exam Limited By: No Limitations General Appearance: Alert, WD/WN, Moderate Distress Eyes: Bilateral: Normal Appearance, EOMI Ears: Normal External Exam, Normal Canal, Hearing Grossly Normal, Normal TMs Nose: Normal Inspection, Normal Mucosa, No Blood Throat/Mouth: Normal Inspection, Normal Lips, Normal Teeth, Normal Gums, Normal Oropharynx, Normal Voice, No Airway Compromise Head: Atraumatic, Normocephalic Neck: Normal Inspection, Supple, Non-Tender, Full Range of Motion Respiratory/Chest: No Respiratory Distress, Lungs Clear, Normal Breath Sounds, No Accessory Muscle Use, Chest Non-Tender Cardiovascular: Normal Peripheral Pulses, Regular Rate, Rhythm, No Edema, No Gallop, No JVD, No Murmur, No Rub GI/Abdominal Exam: Normal Bowel Sounds, Soft, Non-Tender, No Organomegaly, No Distention, No Abnormal Bruit, No Mass, Pelvis Stable (Female) Exam: Deferred Rectal (Female) Exam: Deferred Back Exam: Normal Inspection, Full Range of Motion, NT Extremities: Normal Inspection, Normal Range of Motion, Non-Tender, Normal Capillary Refill, No Pedal Edema Neurological: Alert, Oriented, CN II-XII Intact, Normal Cognition, Normal Gait, Normal Reflexes, No Motor/Sensory Deficits Psychiatric: Normal Affect, Normal Mood Skin Exam: Warm, Dry, Intact, Normal Color, No Rash Lymphatic: No Adenopathy Course - Vital Signs Last Recorded V/S: Last Vital Signs Temp 36.5 C 04/03/19 09:33 Pulse 66 04/03/19 09:33 Resp 14 04/03/19 09:33 BP 114/67 04/03/19 09:33 Pulse Ox 98 04/03/19 09:33 - Orders/Labs/Meds Orders: Active Orders 24 hr Category Date Time Status Admission Diagnosis [ADT] Stat ADT 04/03/19 10:38 Ordered Admission Status [Patient Status] [ADT] Routine ADT 04/03/19 10:38 Ordered UA RFX SHOBHA AND CULT IF INDIC [URIN] Urgent Lab 04/03/19 09:38 Ordered Sodium Chloride 0.9% [Normal Saline] 1,000 ml Med 04/03/19 10:17 Active IV .BOLUS Medication Orders Sodium Chloride (Normal Saline) 1,000 mls @ 999 mls/hr IV .BOLUS ONE Stop: 04/03/19 11:17 Last Admin: 04/03/19 10:24 Dose: 999 mls/hr Labs: Laboratory Tests 04/03/19 04/03/19 04/03/19 Range/Units 09:57 09:57 09:57 WBC 13.7 H (5.0-10.0) 10^3/uL RBC 5.44 H (4.2-5.4) 10^6/uL Hgb 16.4 H D (12.0-16.0) g/dL Hct 46.1 (37.0-47.0) % MCV 84.7 D (80-100) fL MCH 30.1 (27.0-34.0) pg MCHC 35.6 H (33.0-35.0) g/dL Plt Count 470 H D (150-450) 10^3/uL Neut % (Auto) 80.9 H (42.2-75.2) % Lymph % (Auto) 8.6 L (20.5-50.1) % [place] % (Auto) 10.2 H (2-8) % Eos % (Auto) 0.2 L (1.0-3.0) % Baso % (Auto) 0.1 (0.0-1.0) % Sodium 130 L (135-145) mmol/L Potassium 3.3 L (3.6-5.0) mmol/L Chloride 86 L D (101-111) mmol/L Carbon Dioxide 22.0 (21.0-31.0) mmol/L Anion Gap 25.3 BUN 100 H D (7-18) mg/dL Creatinine 2.7 H D (0.6-1.3) mg/dL Est Cr Clr Drug Dosing 14.70 mL/min Estimated GFR (MDRD) 17 BUN/Creatinine Ratio 37.03 Glucose 129 H (74-105) mg/dL Calcium 9.2 (8.4-10.2) mg/dl Total Bilirubin 1.3 H (0.2-1.0) mg/dL AST 32 (10-42) IU/L ALT 26 (10-60) IU/L Alkaline Phosphatase 60 (42-121) IU/L Total Protein 8.3 H (6.7-8.2) g/dl Albumin 4.8 (3.2-5.5) g/dl Globulin 3.5 Albumin/Globulin Ratio 1.37 Amylase 1171 H (28-100) U/L Lipase 63 H (22-51) U/L Meds: Medications Generic Name Dose Route Start Last Admin Trade Name Luiza PRN Reason Stop Dose Admin Sodium Chloride 1,000 mls @ 999 mls/hr 04/03/19 10:17 04/03/19 10:24 Normal Saline IV 04/03/19 11:17 999 mls/hr .BOLUS ONE Administration Discontinued Medications Generic Name Dose Route Start Last Admin Trade Name Luiza PRN Reason Stop Dose Admin Ondansetron HCl 4 mg 04/03/19 09:45 04/03/19 09:51 Zofran IVPUSH 04/03/19 09:46 4 mg ONETIME ONE Administration Departure - Departure Time of Disposition: 10:40 Disposition: Admitted As Inpatient 68 Condition: Poor Clinical Impression: Acute renal failure Qualifiers: Acute renal failure type: unspecified Qualified Code(s): N17.9 - Acute kidney failure, unspecified Nausea & vomiting Qualifiers: Vomiting type: unspecified Vomiting Intractability: unspecified Qualified Code( s): R11.2 - Nausea with vomiting, unspecified - Discharge Information *PRESCRIPTION DRUG MONITORING PROGRAM REVIEWED*: Not Applicable *COPY OF PRESCRIPTION DRUG MONITORING REPORT IN PATIENT KATRIN: Not Applicable Care Plan Goals: Discussed the patient's history and lab results with Dr. Pruitt. Dr. Pruitt accepted the patient for continued evaluation and management as an inpatient at [facility] in [place]. Sepsis Event Note - Evaluation Sepsis Screening Result: No Definite Risk - Focused Exam Vital Signs: Vital Signs Temp Pulse Resp BP Pulse Ox 04/03/19 09:33 36.5 C 66 14 114/67 98 Date Exam was Performed: 04/03/19 Time Exam was Performed: 10:40 - My Orders Last 24 Hours: My Active Orders 04/03/19 09:38 UA RFX SHOBHA AND CULT IF INDIC [URIN] Urgent 04/03/19 10:17 Sodium Chloride 0.9% [Normal Saline] 1,000 ml IV .BOLUS 04/03/19 10:38 Admission Diagnosis [ADT] Stat Admission Status [Patient Status] [ADT] Routine - Assessment/Plan Last 24 Hours: My Active Orders 04/03/19 09:38 UA RFX SHOBHA AND CULT IF INDIC [URIN] Urgent 04/03/19 10:17 Sodium Chloride 0.9% [Normal Saline] 1,000 ml IV .BOLUS 04/03/19 10:38 Admission Diagnosis [ADT] Stat Admission Status [Patient Status] [ADT] Routine
[2019-04-03] MEDS ORDERED: Sodium Chloride 0.9% 1,000 ML IV ONE (10:17)
[2019-04-03 10:26] LABS: ANION GAP 25.3
[2019-04-03] MEDS ORDERED: Potassium Chloride 10 MEQ Tab.ER PO ONE (12:07)
[2019-04-03] MEDS ORDERED: NS + KCl 20mEq/L 1,000 ML IV SCH (12:15)
[2019-04-03] MEDS ORDERED: Ondansetron 4 MG Tab.DIS PO PRN (12:16)
[2019-04-03] MEDS ORDERED: Ondansetron 4 MG/2 ML SDV IVPUSH PRN (12:16)
[2019-04-03] MEDS ORDERED: Sodium Chloride 0.9% 10 ML Syringe FLUSH PRN (12:16)
[2019-04-03] MEDS ORDERED: Acetaminophen 325 MG Tab PO PRN (12:16)
[2019-04-03] MEDS ORDERED: Temazepam 15 MG Cap PO PRN (12:16)
[2019-04-03] MEDS ORDERED: Promethazine 25 MG Tab PO PRN (12:16)
[2019-04-03] MEDS ORDERED: Barium Sulfate w/v 2.1% Oral Susp 450 ML Bottle PO ONE (12:50)
--- NOTE | 2019-04-03 13:03 | PCM.PN ---
- General Info Date of Service: 04/03/19 Subjective Update: 83-year-old with a history of hypertension, dyslipidemia. The patient generalized weakness, lightheadedness. About 4 days prior to admission the patient developed relatively sudden onset of abdominal distention, abdominal pain describing as "fire" Had a few loose bowel movements. Subsequently has been nauseous and vomiting and has not been eating in the past 3-4 days. The vomitus is clear. 1 day after the initial symptoms that distended abdomen has been improving gradually. Now has no abdominal pain and no distention anymore. No associated fever, chills, chest pain, shortness of breath. Functional Status: Denies: Tolerating Diet - Review of Systems General: Reports: Weakness. Denies: Fever Pulmonary: Denies: Shortness of Breath Cardiovascular: Denies: Chest Pain, Edema Genitourinary: Denies: Dysuria Psychiatric: Denies: Confusion - Patient Data Vitals - Most Recent: Last Vital Signs Temp 36.4 C 04/03/19 11:04 Pulse 90 04/03/19 11:04 Resp 16 04/03/19 11:04 BP 118/76 04/03/19 11:04 Pulse Ox 97 04/03/19 11:04 Weight - Most Recent: 80.059 kg Lab Results Last 24 Hours: Laboratory Results - last 24 hr 04/03/19 04/03/19 04/03/19 Range/Units 09:57 09:57 09:57 WBC 13.7 H (5.0-10.0) 10^3/uL RBC 5.44 H (4.2-5.4) 10^6/uL Hgb 16.4 H D (12.0-16.0) g/dL Hct 46.1 (37.0-47.0) % MCV 84.7 D (80-100) fL MCH 30.1 (27.0-34.0) pg MCHC 35.6 H (33.0-35.0) g/dL Plt Count 470 H D (150-450) 10^3/uL Neut % (Auto) 80.9 H (42.2-75.2) % Lymph % (Auto) 8.6 L (20.5-50.1) % White % (Auto) 10.2 H (2-8) % Eos % (Auto) 0.2 L (1.0-3.0) % Baso % (Auto) 0.1 (0.0-1.0) % Sodium 130 L (135-145) mmol/L Potassium 3.3 L (3.6-5.0) mmol/L Chloride 86 L D (101-111) mmol/L Carbon Dioxide 22.0 (21.0-31.0) mmol/L Anion Gap 25.3 BUN 100 H D (7-18) mg/dL Creatinine 2.7 H D (0.6-1.3) mg/dL Est Cr Clr Drug Dosing 14.70 mL/min Estimated GFR (MDRD) 17 BUN/Creatinine Ratio 37.03 Glucose 129 H (74-105) mg/dL Calcium 9.2 (8.4-10.2) mg/dl Total Bilirubin 1.3 H (0.2-1.0) mg/dL AST 32 (10-42) IU/L ALT 26 (10-60) IU/L Alkaline Phosphatase 60 (42-121) IU/L Total Protein 8.3 H (6.7-8.2) g/dl Albumin 4.8 (3.2-5.5) g/dl Globulin 3.5 Albumin/Globulin Ratio 1.37 Amylase 1171 H (28-100) U/L Lipase 63 H (22-51) U/L Ben Results Last 24 Hours: Microbiology 04/03/19 09:27 Influenza Type A Antigen Screen - Final Nasal, Unspecified NEGATIVE INFLUENZA A VIRUS AG REFERENCE RANGE: NEGATIVE Influenza Type B Antigen Screen - Final NEGATIVE INFLUENZA B VIRUS AG REFERENCE RANGE: NEGATIVE Med Orders - Current: Current Medications Acetaminophen (Tylenol) 650 mg PO Q4H PRN PRN Reason: Pain (Mild 1-3)/fever Aspirin (Halfprin) 81 mg PO 0700 [facility] Barium Sulfate (Readi-Cat 2) 900 ml PO ONETIME ONE Stop: 04/03/19 12:51 Potassium Chloride/Sodium Chloride (Normal Saline With 20 Meq Kcl) 1,000 mls @ 100 mls/hr IV ASDIRECTED BRII Last Admin: 04/03/19 12:31 Dose: 100 mls/hr Ondansetron HCl (Zofran) 4 mg IVPUSH Q4H PRN PRN Reason: Nausea/Vomiting Ondansetron HCl (Zofran Odt) 4 mg PO Q6H PRN PRN Reason: nausea, able to take PO Pantoprazole Sodium (Protonix) 40 mg PO 0630 BRII Promethazine HCl (Phenergan) 25 mg PO Q6H PRN PRN Reason: nausea, able to take PO Sodium Chloride (Saline Flush) 10 ml FLUSH ASDIRECTED PRN PRN Reason: Keep Vein Open Temazepam (Restoril) 15 mg PO BEDTIME PRN PRN Reason: Sleep Discontinued Medications Sodium Chloride (Normal Saline) 1,000 mls @ 999 mls/hr IV .BOLUS ONE Stop: 04/03/19 11:17 Last Admin: 04/03/19 10:24 Dose: 999 mls/hr Ondansetron HCl (Zofran) 4 mg IVPUSH ONETIME ONE Stop: 04/03/19 09:46 Last Admin: 04/03/19 09:51 Dose: 4 mg Potassium Chloride (Klor-Con 10) 40 meq PO ONETIME ONE Stop: 04/03/19 12:08 - Exam General: Alert, Oriented Neck: Supple Lungs: Clear to Auscultation, Normal Respiratory Effort Cardiovascular: Regular Rate, Regular Rhythm GI/Abdominal Exam: Non-Tender, Other (Positive bowel sounds, hernia is reposition about, prior surgical scar on abdomen). No: Distended, Rebound, Tender Extremities: No Pedal Edema Skin: Warm, Dry Neurological: No New Focal Deficit Psy/Mental Status: Alert, Normal Affect, Normal Mood Sepsis Event Note - Evaluation Sepsis Screening Result: No Definite Risk - Focused Exam Vital Signs: Vital Signs Temp Pulse Resp BP Pulse Ox 04/03/19 11:04 36.4 C 90 16 118/76 97 04/03/19 09:33 36.5 C 66 14 114/67 98 Date Exam was Performed: 04/03/19 Time Exam was Performed: 12:52 - Problem List & Annotations (1) Nausea & vomiting SNOMED Code(s): 38972652 Code(s): R11.2 - NAUSEA WITH VOMITING, UNSPECIFIED Status: Acute Current Visit: No Qualifiers: Vomiting type: unspecified Vomiting Intractability: unspecified Qualified Code(s): R11.2 - Nausea with vomiting, unspecified - Problem List Review Problem List Initiated/Reviewed/Updated: Yes - My Orders Last 24 Hours: My Active Orders 04/03/19 12:07 CULTURE BLOOD [BC] Stat CULTURE BLOOD [BC] Stat Blood Culture x2 Reflex Set [OM.PC] Stat 04/03/19 12:15 NS + KCl 20mEq/L [Normal Saline with 20 mEq KCl] 1,000 ml IV ASDIRECTED 04/03/19 12:16 Oxygen Therapy [RC] PRN Up With Assistance [RC] ASDIRECTED VTE/DVT Education [RC] PER UNIT ROUTINE Vital Signs [RC] Q4H Acetaminophen [Tylenol] 650 mg PO Q4H PRN Ondansetron [Zofran ODT] 4 mg PO Q6H PRN Ondansetron [Zofran] 4 mg IVPUSH Q4H PRN Promethazine [Phenergan] 25 mg PO Q6H PRN Sodium Chloride 0.9% [Saline Flush] 10 ml FLUSH ASDIRECTED PRN Temazepam [Restoril] 15 mg PO BEDTIME PRN Antiembolic Hose [OM.PC] Per Unit Routine Peripheral IV Insertion Adult [OM.PC] Routine Resuscitation Status Routine 04/03/19 12:18 Antiembolic Devices [RC] PER UNIT ROUTINE Peripheral IV Care [RC] . DIRECTED 04/03/19 12:45 LACTIC ACID [CHEM] Routine 04/03/19 12:47 Abdomen Pelvis w Cont [CT] Routine 04/03/19 12:50 Barium Sulfate [Readi-Cat 2] 900 ml PO ONETIME ONE 04/03/19 Dinner Clear Liquid Diet [DIET] 04/04/19 05:11 AMYLASE [CHEM] AM HEPATIC FUNCTION PANEL,HFP [CHEM] AM LIPASE [CHEM] AM MAGNESIUM [CHEM] AM PHOSPHORUS [CHEM] AM 04/04/19 05:15 BASIC METABOLIC PANEL,BMP [CHEM] AM CBC WITH AUTO DIFF [HEME] AM 04/04/19 06:30 Pantoprazole [ProTONIX] 40 mg PO 0630 04/04/19 07:00 Aspirin [Halfprin] 81 mg PO 0700 - Plan Plan:: Sudden onset of abdominal distention, nausea, vomiting. The patient last likely had a small bowel obstruction. The distention has improved over the past few days She is unable to keep food and liquids down still. I will obtain a lactic acid level Obtain CT of the abdomen to evaluate for bowel obstruction In the meantime treat conservatively with IV fluids, antiemetics If the nausea can be controlled and no further distention I will hold NG tube placement Elevated lipase and amylase likely secondary to vomiting Will recheck Leukocytosis Likely due to bowel obstruction, nausea vomiting Will obtain blood cultures as well Acute renal failure Acute orthostatic hypotension with lightheadedness Likely due to hypovolemia Hold ARB Give IV fluids Hypokalemia We'll replace and follow DVT prophylaxis with subcutaneous heparin
--- NOTE | 2019-04-03 14:19 | CT ---
EXAMINATION: Abdomen Pelvis wo Cont SEX: Female AGE: 83 years CLINICAL HISTORY: 83-year-old female with history "recurrent ventral wall hernia" and ABDOMEN PAIN. Rule out SBO this patient with stage III kidney disease who has had previous left mastectomy (1985) and was reported on [address] exam ..."pancolonic diverticulosis, cholelithiasis, hepatic cysts and large ventral wall defect with small bowel herniation". Scan technique: Volume acquisition of data unenhanced CT scan abdomen and pelvis obtained with the patient lying supine on the Siemens multislice scanner [facility]. All data archived in the PACS system for storage, reformatting axial/sagittal/coronal planes and study. Interpretation: Abnormal. 1. *Large adjacent ventral wall defects with herniated "knuckle" of large intestine superiorly (right of midline) and herniated loop of small intestine line inferiorly (midline) with several abnormally dilated small bowel loops and differential air-fluid levels dilated small bowel loops i.e. SMALL BOWEL (SBO) OBSTRUCTION. 2. Smith colonic diverticulosis without associated evidence of inflammation i.e. no inflammatory pericolonic "dirty" peritoneal fat, signs of abscess or mechanical large bowel obstruction. 3. No abdominal or pelvic mass lesion. No mesenteric or retroperitoneal lymphadenopathy. No ascites or free air. 4. Calcifications outlining normal caliber aortoiliac vessels. 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 5. Reproducible cyst left lobe of the liver. Cholecystectomy. 6. Normal cardiac silhouette. Lung bases clear. Midline vaginal pessary lower pelvis. CONCLUSION: *High-grade mechanical small bowel obstruction (associated with ventral wall hernia). Pancolonic diverticulosis. Cholecystectomy. Left hepatic cyst. Usual signs of senescence and DJD.
[2019-04-03 14:29] VITALS: BP 114/66; PULSE 98
[2019-04-03] MEDS ORDERED: Ciprofloxacin in D5W 400 MG in Premix Bag 1 BAG IV SCH ×2 (17:30)
--- NOTE | 2019-04-03 17:50 | PCM.DCSUM1 ---
Discharge Summary - Hospital Course Free Text/Narrative:: presented with lightheadedness 3-4 days of nausea, vomiting, lack of BM noted to have leukocytosis, normal lactic acid CT showed ventral hernia related SBO seen by general surgery - dr. Figueroa - he recommended surgical eval at larger facility also noted REBEKAH likely due to dehydration due to n/v , low oral intake started on IVF boluses, IVF maintenance had abnormal ua started cipro Diagnosis: Stroke: No - Discharge Data Discharge Date: 04/03/19 Discharge Disposition: Home, Self-Care 01 Condition: Good - Referral to Home Health Primary Care Physician: PCP Unobtainable - Discharge Diagnosis/Problem(s) (1) Nausea & vomiting SNOMED Code(s): 72631154 ICD Code: R11.2 - NAUSEA WITH VOMITING, UNSPECIFIED Status: Acute Current Visit: No Qualifiers: Vomiting type: unspecified Vomiting Intractability: unspecified Qualified Code(s): R11.2 - Nausea with vomiting, unspecified - Patient Summary/Data Consults: Consultations 04/03/19 17:21 Consult to Physician [CONS] Routine - Patient Instructions Diet: NPO Activity: As Tolerated - Discharge Plan *PRESCRIPTION DRUG MONITORING PROGRAM REVIEWED*: Not Applicable *COPY OF PRESCRIPTION DRUG MONITORING REPORT IN PATIENT KATRIN: Not Applicable Home Medications: Home Meds Aspirin [Halfprin] 81 mg PO 0700 05/06/15 [History] Calcium Citrate/Vitamin D3 [Calcium Citrate + D] 1 tab PO DAILY 05/06/15 [ History] Dextran 70/Hypromellose [Artificial Tears] 1 drop EYEBOTH BID PRN 05/06/15 [ History] Multivitamin [Daily Multiple Vitamin] 1 tab PO DAILY 05/06/15 [History] Pantoprazole [ProTONIX] 40 mg PO 0630 12/18/15 [History] Cholecalciferol (Vitamin D3) [Vitamin D3] 1,000 unit PO DAILY 04/03/19 [History] Ciprofloxacin in D5W [Ciprofloxacin-D5W] 400 mg IV DAILY bag 04/03/19 [Rx] Cranberry Fruit Extract [Cranberry] 200 mg PO DAILY 04/03/19 [History] Ezetimibe 10 mg PO .MONWEDFRI 04/03/19 [History] Simvastatin 20 mg PO .MONWEDFRI 04/03/19 [History] - Discharge Summary/Plan Comment DC Time >30 min.: No - General Info Date of Service: 04/03/19 - Review of Systems General: Denies: Fever Pulmonary: Denies: Shortness of Breath Cardiovascular: Denies: Edema Gastrointestinal: Reports: Nausea, Vomiting. Denies: Abdominal Pain Neurological: Denies: Confusion - Patient Data Vitals - Most Recent: Last Vital Signs Temp 98.2 F 04/03/19 13:00 Pulse 98 04/03/19 13:00 Resp 18 04/03/19 13:00 BP 114/66 04/03/19 13:00 Pulse Ox 97 04/03/19 13:00 Weight - Most Recent: 176 lb 8 oz I&O - Last 24 hours: Intake & Output 04/03/19 04/03/19 04/03/19 06:59 14:59 22:59 Output Total 300 Balance -300 Lab Results - Last 24 hrs: Laboratory Results - last 24 hr 04/03/19 04/03/19 04/03/19 Range/Units 09:57 09:57 09:57 WBC 13.7 H (5.0-10.0) 10^3/uL RBC 5.44 H (4.2-5.4) 10^6/uL Hgb 16.4 H D (12.0-16.0) g/dL Hct 46.1 (37.0-47.0) % MCV 84.7 D (80-100) fL MCH 30.1 (27.0-34.0) pg MCHC 35.6 H (33.0-35.0) g/dL Plt Count 470 H D (150-450) 10^3/uL Neut % (Auto) 80.9 H (42.2-75.2) % Lymph % (Auto) 8.6 L (20.5-50.1) % [place] % (Auto) 10.2 H (2-8) % Eos % (Auto) 0.2 L (1.0-3.0) % Baso % (Auto) 0.1 (0.0-1.0) % Sodium 130 L (135-145) mmol/L Potassium 3.3 L (3.6-5.0) mmol/L Chloride 86 L D (101-111) mmol/L Carbon Dioxide 22.0 (21.0-31.0) mmol/L Anion Gap 25.3 BUN 100 H D (7-18) mg/dL Creatinine 2.7 H D (0.6-1.3) mg/dL Est Cr Clr Drug Dosing 14.70 mL/min Estimated GFR (MDRD) 17 BUN/Creatinine Ratio 37.03 Glucose 129 H (74-105) mg/dL Lactic Acid (0.5-2.0) mmol/L Calcium 9.2 (8.4-10.2) mg/dl Total Bilirubin 1.3 H (0.2-1.0) mg/dL AST 32 (10-42) IU/L ALT 26 (10-60) IU/L Alkaline Phosphatase 60 (42-121) IU/L Total Protein 8.3 H (6.7-8.2) g/dl Albumin 4.8 (3.2-5.5) g/dl Globulin 3.5 Albumin/Globulin Ratio 1.37 Amylase 1171 H (28-100) U/L Lipase 63 H (22-51) U/L Urine Color (YELLOW) Urine Appearance (CLEAR) Urine pH (5.0-9.0) Ur Specific [place] (1.005-1.030) Urine Protein (NEGATIVE) Urine Glucose (UA) (NEGATIVE) Urine Ketones (NEGATIVE) Urine Occult Blood (NEGATIVE) Urine Nitrite (NEGATIVE) Urine Bilirubin (NEGATIVE) Urine Urobilinogen (0.2-1.0) mg/dL Ur Leukocyte Esterase (NEGATIVE) Urine RBC /HPF Urine WBC (0-5/HPF) /HPF Ur Epithelial Cells (NOT SEEN) /HPF Amorphous Sediment (NOT SEEN) /HPF Urine Bacteria (0-FEW/HPF) /HPF Hyaline Casts (NOT SEEN) /LPF Urine Mucus (NOT SEEN) /LPF 04/03/19 04/03/19 Range/Units 12:51 13:47 WBC (5.0-10.0) 10^3/uL RBC (4.2-5.4) 10^6/uL Hgb (12.0-16.0) g/dL Hct (37.0-47.0) % MCV (80-100) fL MCH (27.0-34.0) pg MCHC (33.0-35.0) g/dL Plt Count (150-450) 10^3/uL Neut % (Auto) (42.2-75.2) % Lymph % (Auto) (20.5-50.1) % [place] % (Auto) (2-8) % Eos % (Auto) (1.0-3.0) % Baso % (Auto) (0.0-1.0) % Sodium (135-145) mmol/L Potassium (3.6-5.0) mmol/L Chloride (101-111) mmol/L Carbon Dioxide (21.0-31.0) mmol/L Anion Gap BUN (7-18) mg/dL Creatinine (0.6-1.3) mg/dL Est Cr Clr Drug Dosing mL/min Estimated GFR (MDRD) BUN/Creatinine Ratio Glucose (74-105) mg/dL Lactic Acid 1.9 (0.5-2.0) mmol/L Calcium (8.4-10.2) mg/dl Total Bilirubin (0.2-1.0) mg/dL AST (10-42) IU/L ALT (10-60) IU/L Alkaline Phosphatase (42-121) IU/L Total Protein (6.7-8.2) g/dl Albumin (3.2-5.5) g/dl Globulin Albumin/Globulin Ratio Amylase (28-100) U/L Lipase (22-51) U/L Urine Color Yellow (YELLOW) Urine Appearance Cloudy (CLEAR) Urine pH 5.0 (5.0-9.0) Ur Specific [place] >= 1.030 (1.005-1.030) Urine Protein Negative (NEGATIVE) Urine Glucose (UA) Negative (NEGATIVE) Urine Ketones Negative (NEGATIVE) Urine Occult Blood Trace-lysed H (NEGATIVE) Urine Nitrite Negative (NEGATIVE) Urine Bilirubin Negative (NEGATIVE) Urine Urobilinogen 0.2 (0.2-1.0) mg/dL Ur Leukocyte Esterase Small H (NEGATIVE) Urine RBC 10-20 H /HPF Urine WBC 75-100 H (0-5/HPF) /HPF Ur Epithelial Cells Many H (NOT SEEN) /HPF Amorphous Sediment Moderate H (NOT SEEN) /HPF Urine Bacteria Moderate H (0-FEW/HPF) /HPF Hyaline Casts Few H (NOT SEEN) /LPF Urine Mucus Moderate H (NOT SEEN) /LPF SHOBHA Results - Last 24 hrs: Microbiology 04/03/19 09:27 Influenza Type A Antigen Screen - Final Nasal, Unspecified NEGATIVE INFLUENZA A VIRUS AG REFERENCE RANGE: NEGATIVE Influenza Type B Antigen Screen - Final NEGATIVE INFLUENZA B VIRUS AG REFERENCE RANGE: NEGATIVE Med Orders - Current: Current Medications Acetaminophen (Tylenol) 650 mg PO Q4H PRN PRN Reason: Pain (Mild 1-3)/fever Aspirin (Halfprin) 81 mg PO 0700 [facility] Potassium Chloride/Sodium Chloride (Normal Saline With 20 Meq Kcl) 1,000 mls @ 100 mls/hr IV ASDIRECTED [facility] Last Admin: 04/03/19 12:31 Dose: 100 mls/hr Ciprofloxacin/Dextrose 400 mg/ (Premix) 200 mls @ 200 mls/hr IV DAILY [facility] Ondansetron HCl (Zofran) 4 mg IVPUSH Q4H PRN PRN Reason: Nausea/Vomiting Last Admin: 04/03/19 16:32 Dose: 4 mg Ondansetron HCl (Zofran Odt) 4 mg PO Q6H PRN PRN Reason: nausea, able to take PO Pantoprazole Sodium (Protonix) 40 mg PO 0630 [facility] Promethazine HCl (Phenergan) 25 mg PO Q6H PRN PRN Reason: nausea, able to take PO Sodium Chloride (Saline Flush) 10 ml FLUSH ASDIRECTED PRN PRN Reason: Keep Vein Open Temazepam (Restoril) 15 mg PO BEDTIME PRN PRN Reason: Sleep Discontinued Medications Barium Sulfate (Readi-Cat 2) 900 ml PO ONETIME ONE Stop: 04/03/19 12:51 Last Admin: 04/03/19 13:34 Dose: Not Given Sodium Chloride (Normal Saline) 1,000 mls @ 999 mls/hr IV .BOLUS ONE Stop: 04/03/19 11:17 Last Admin: 04/03/19 10:24 Dose: 999 mls/hr Ondansetron HCl (Zofran) 4 mg IVPUSH ONETIME ONE Stop: 04/03/19 09:46 Last Admin: 04/03/19 09:51 Dose: 4 mg Potassium Chloride (Klor-Con 10) 40 meq PO ONETIME ONE Stop: 04/03/19 12:08 Last Admin: 04/03/19 17:27 Dose: 40 meq - Exam General: Reports: Alert, Oriented Neck: Reports: Supple Lungs: Reports: Clear to Auscultation, Normal Respiratory Effort Cardiovascular: Reports: Regular Rate, Regular Rhythm GI/Abdominal Exam: Hernia. No: Distended, Tender Extremities: No Pedal Edema
[2019-04-04] MEDS ORDERED: Pantoprazole 40 MG Tab.CR PO SCH (06:30)
[2019-04-04] MEDS ORDERED: Aspirin 81 MG Tab.EC PO SCH (07:00)
== END 2019-04-03 18:30 | disposition home or self-care (01) | DRG 683 ==
LOC: DL.ED 09:48 → DL.MS 10:38 → DL.ED 10:45
PROVIDERS: ADMIT Internal Medicine; ATTEND Internal Medicine
DX: N17.9 Acute kidney failure, unspecified (principal); R11.2 Nausea with vomiting, unspecified; K56.609 Unspecified intestinal obstruction, unspecified as to partial versus complete obstruction; E78.00 Pure hypercholesterolemia, unspecified; E86.0 Dehydration; K43.9 Ventral hernia without obstruction or gangrene; I10 Essential (primary) hypertension; E78.5 Hyperlipidemia, unspecified; Z85.3 Personal history of malignant neoplasm of breast; R74.8 Abnormal levels of other serum enzymes; Z90.12 Acquired absence of left breast and nipple; E87.6 Hypokalemia; H54.7 Unspecified visual loss; N18.9 Chronic kidney disease, unspecified; Z87.440 Personal history of urinary (tract) infections; M19.90 Unspecified osteoarthritis, unspecified site; E66.9 Obesity, unspecified; M81.0 Age-related osteoporosis without current pathological fracture; Z68.30 Body mass index [BMI] 30.0-30.9, adult; Z85.820 Personal history of malignant melanoma of skin; Z98.49 Cataract extraction status, unspecified eye; Z90.10 Acquired absence of unspecified breast and nipple; Z79.82 Long term (current) use of aspirin; Z79.2 Long term (current) use of antibiotics; Z79.899 Other long term (current) drug therapy; Z98.890 Other specified postprocedural states; Z88.5 Allergy status to narcotic agent; Z88.0 Allergy status to penicillin; Z88.2 Allergy status to sulfonamides; Z88.8 Allergy status to other drugs, medicaments and biological substances; Z68.29 Body mass index [BMI] 29.0-29.9, adult
CPT/HCPCS: 36415; 80053; 82150; 83690; 85025; 87804 ×2; J2405; J7030; 74176; 81001; 83605; 87040; 87086; 87088; 87186; 96374; 99284; 99285-25; A9270-GY; J3480

== ENCOUNTER 2019-04-25 09:56 | Emergency (ER) | payer MEDICARE, OTHER ==
[2019-04-25 10:04] VITALS: BP 137/74; PULSE 109
[2019-04-25] MEDS ORDERED: Ondansetron 4 MG/2 ML SDV IV ONE (10:08)
[2019-04-25] MEDS ORDERED: Sodium Chloride 0.9% 10 ML Syringe FLUSH PRN (10:08)
[2019-04-25] MEDS ORDERED: Sodium Chloride 0.9% 500 ML IV SCH (10:15)
--- NOTE | 2019-04-25 10:26 | EDM.PDOC ---
"<Bijan Castro - Last Filed: 04/25/19 11:28> ED HPI GENERAL MEDICAL PROBLEM - General Chief Complaint: Gastrointestinal Problem Stated Complaint: AMBULANCE Time Seen by Provider: 04/25/19 10:21 Source of Information: Reports: Patient, RN, RN Notes Reviewed History Limitations: Reports: No Limitations - History of Present Illness INITIAL COMMENTS - FREE TEXT/NARRATIVE: 83 y.o F presents with emesis that began 0500 this AM. Patient reports hx bowel obstruction. Patient reports recent hospitalization in [place] x 1 week and was told that she was to develop vomiting to be evaluated. Patient reports emesis x3, green/yellow. Reports normal BM this morning and N/V immediately following bowel movement but denies any andominal pain. Reports normal appetite yesterday. She has been eating well with soft foods and adequate fluid intake. Patient reports that she did have an NG tube with in [place]. Patient was supposed to have abdominal surgery, hernia, in [place] but was too weak to have the surgery. She was discharged to home to get strength back with surgery rescheduled for early May with Dr. Berry. Onset: Today Duration: Hour(s): (5 hours) Location: Reports: Abdomen Quality: Reports: Other (Denies pain) Severity: Mild Improves with: Reports: None Worsens with: Reports: None Associated Symptoms: Reports: Nausea/Vomiting. Denies: Chest Pain, Cough, Fever /Chills, Headaches, Shortness of Breath - Related Data Allergies Allergy/AdvReac Type Severity Reaction Status Date / Time atorvastatin calcium Allergy Muscle Verified 04/25/19 10:04 [From Lipitor] Aches codeine Allergy Nausea and Verified 04/25/19 10:04 Vomiting Penicillins Allergy Rash Verified 04/25/19 10:04 Sulfa (Sulfonamide Allergy Nausea and Verified 04/25/19 10:04 Antibiotics) Vomiting Home Meds: Home Meds Aspirin [Halfprin] 81 mg PO 0700 05/06/15 [History] Calcium Citrate/Vitamin D3 [Calcium Citrate + D] 1 tab PO DAILY 05/06/15 [ History] Dextran 70/Hypromellose [Artificial Tears] 1 drop EYEBOTH BID PRN 05/06/15 [ History] Multivitamin [Daily Multiple Vitamin] 1 tab PO DAILY 05/06/15 [History] Pantoprazole [ProTONIX] 40 mg PO DAILY 12/18/15 [History] Cholecalciferol (Vitamin D3) [Vitamin D3] 1,000 unit PO DAILY 04/03/19 [History] Ciprofloxacin in D5W [Ciprofloxacin-D5W] 400 mg IV DAILY bag 04/03/19 [Rx] Cranberry Fruit Extract [Cranberry] 200 mg PO DAILY 04/03/19 [History] Ezetimibe 10 mg PO .MONWEDFRI 04/03/19 [History] Simvastatin 20 mg PO .MONWEDFRI 04/03/19 [History] Apixaban [Eliquis] 5 mg PO DAILY 04/25/19 [History] Past Medical History HEENT History: Reports: Cataract, Impaired Vision Other HEENT History: WEARS CORRECTIVE LENSES Cardiovascular History: Reports: High Cholesterol, Hypertension Respiratory History: Reports: Other (See Below) Other Respiratory History: bronch/pna once before Gastrointestinal History: Reports: Bowel Obstruction, Cholelithiasis, Diverticulosis, GI Bleed, Other (See Below) Other Gastrointestinal History: Hernia Genitourinary History: Reports: Acute Renal Failure, Chronic Renal Insuffiency, UTI, 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 Hematologic History: Reports: Anesthesia Reaction Other Hematologic History: ANESTHESIA - N/V; Immunologic History: Reports: None Oncologic (Cancer) History: Reports: Breast, Malignant Melanoma Dermatologic History: Reports: Melanoma, Urticaria Other Dermatologic History: HX OF SENSITIVE SKIN , Melanoma 1998 - Infectious Disease History Infectious Disease History: Reports: Chicken Pox, Measles, Mumps - Past Surgical History Head Surgeries/Procedures: Reports: None HEENT Surgical History: Reports: None Cardiovascular Surgical History: Reports: None GI Surgical History: Reports: Cholecystectomy, Colonoscopy, EGD, Hernia, Abdominal, Other (See Below) Other GI Surgeries/Procedures: colon resection Female Surgical History: Reports: Breast Biopsy, Mastectomy, Other (See Below ) Other Female Surgeries/Procedures: L) Neurological Surgical History: Reports: None Musculoskeletal Surgical History: Reports: Other (See Below) Other Musculoskeletal Surgeries/Procedures:: Back surgery 1982 Oncologic Surgical History: Reports: Biopsy of Breast, Mastectomy Dermatological Surgical History: Reports: Skin Biopsy Social & Family History - Family History Family Medical History: Noncontributory HEENT: Reports: Cataract, Glaucoma, Impaired Vision Cardiac: Reports: Arrhythmia Respiratory: Reports: Other (See Below) Other Respiratory Family Hisory: HX OF LUNG CANCER IN FATHER GI: Reports: None Musculoskeletal: Reports: Arthritis, Osteoarthritis Neurological: Reports: Alzheimers Disease Psychiatric: Reports: None Endocrine/Metabolic: Reports: Hyperthyroidism, Obesity/MBI 30+, Osteoporosis Hematologic: Reports: Anemia Immunologic: Reports: None Dermatologic: Reports: None Oncologic: Reports: Colon, Esophageal, Lung - Tobacco Use Smoking Status *Q: Never Smoker Second Hand Smoke Exposure: No - Caffeine Use Caffeine Use: Reports: Coffee - Recreational Drug Use Recreational Drug Use: No - Living Situation & Occupation Living situation: Reports: , with Spouse Occupation: Retired ED ROS GENERAL - Review of Systems Review Of Systems: See Below Constitutional: Reports: Weakness. Denies: Fever, Chills, Fatigue, Decreased Appetite HEENT: Reports: No Symptoms Respiratory: Denies: Shortness of Breath, Wheezing, Cough Cardiovascular: Denies: Chest Pain, Palpitations, Syncope GI/Abdominal: Reports: Diarrhea, Distension, Nausea, Vomiting. Denies: Abdominal Pain, Difficulty Swallowing : Denies: Flank Pain, Frequency, Urgency Skin: Reports: No Symptoms Neurological: Denies: Dizziness, Headache, Syncope Psychiatric: Reports: No Symptoms Hematologic/Lymphatic: Reports: No Symptoms Immunologic: Reports: No Symptoms ED EXAM, GI/ABD - Physical Exam Exam: See Below Exam Limited By: No Limitations General Appearance: Alert, WD/WN, No Apparent Distress Head: Atraumatic, Normocephalic Neck: Normal Inspection, Supple, Non-Tender, Full Range of Motion Respiratory/Chest: No Respiratory Distress, Lungs Clear, Normal Breath Sounds, No Accessory Muscle Use, Chest Non-Tender Cardiovascular: Normal Peripheral Pulses, Regular Rate, Rhythm, No Edema, No Gallop, No JVD, No Murmur, No Rub GI/Abdominal Exam: Non-Tender, Distended (mild distention), Abnormal Bowel Sounds (hypoactive), Hernia (ventral hernia) (Female) Exam: Deferred Rectal (Female) Exam: Deferred Back Exam: Normal Inspection, Full Range of Motion, NT Extremities: Normal Inspection, Normal Range of Motion, Non-Tender, Normal Capillary Refill, No Pedal Edema Neurological: Alert, Oriented, CN II-XII Intact, Normal Cognition, Normal Gait, Normal Reflexes, No Motor/Sensory Deficits Psychiatric: Normal Affect, Normal Mood Skin Exam: Warm, Dry, Intact, Normal Color, No Rash Lymphatic: No Adenopathy Course - Vital Signs Last Recorded V/S: Last Vital Signs Temp 98.4 F 04/25/19 09:56 Pulse 109 H 04/25/19 09:56 Resp 18 04/25/19 09:56 BP 137/74 04/25/19 09:56 Pulse Ox 100 04/25/19 09:56 - Orders/Labs/Meds Orders: Active Orders 24 hr Category Date Time Status Peripheral IV Care [RC] . DIRECTED Care 04/25/19 10:09 Active Abdomen Pelvis wo Cont [CT] Stat Exams 04/25/19 10:26 Taken Sodium Chloride 0.9% [Normal Saline] 500 ml Med 04/25/19 10:15 Active IV .BOLUS Sodium Chloride 0.9% [Saline Flush] Med 04/25/19 10:08 Active 10 ml FLUSH ASDIRECTED PRN Peripheral IV Insertion Adult [OM.PC] Stat Oth 04/25/19 10:08 Ordered Medication Orders Sodium Chloride (Normal Saline) 500 mls @ 999 mls/hr IV .BOLUS BRII Last Infusion: 04/25/19 11:05 Dose: 999 mls/hr Admin: 04/25/19 10:30 Dose: 999 mls/hr Sodium Chloride (Saline Flush) 10 ml FLUSH ASDIRECTED PRN PRN Reason: Keep Vein Open Last Admin: 04/25/19 10:20 Dose: 10 ml Labs: Laboratory Tests 04/25/19 04/25/19 04/25/19 Range/Units 10:23 10:23 10:23 WBC 7.5 (5.0-10.0) 10^3/uL RBC 3.87 L (4.2-5.4) 10^6/uL Hgb 11.6 L D (12.0-16.0) g/dL Hct 34.7 L (37.0-47.0) % MCV 89.7 D (80-100) fL MCH 30.0 (27.0-34.0) pg MCHC 33.4 (33.0-35.0) g/dL Plt Count 308 D (150-450) 10^3/uL Neut % (Auto) 92.3 H (42.2-75.2) % Lymph % (Auto) 2.0 L (20.5-50.1) % [place] % (Auto) 4.9 (2-8) % Eos % (Auto) 0.7 L (1.0-3.0) % Baso % (Auto) 0.1 (0.0-1.0) % Sodium 135 (135-145) mmol/L Potassium 4.3 (3.6-5.0) mmol/L Chloride 104 D (101-111) mmol/L Carbon Dioxide 21.0 (21.0-31.0) mmol/L Anion Gap 14.3 BUN 22 H D (7-18) mg/dL Creatinine 1.0 D (0.6-1.3) mg/dL Est Cr Clr Drug Dosing 39.70 mL/min Estimated GFR (MDRD) 53 BUN/Creatinine Ratio 22.00 Glucose 119 H (74-105) mg/dL Lactic Acid 1.6 (0.5-2.0) mmol/L Calcium 9.0 (8.4-10.2) mg/dl Total Bilirubin 0.7 (0.2-1.0) mg/dL AST 19 (10-42) IU/L ALT 16 (10-60) IU/L Alkaline Phosphatase 63 (42-121) IU/L Total Protein 7.2 (6.7-8.2) g/dl Albumin 4.0 (3.2-5.5) g/dl Globulin 3.2 Albumin/Globulin Ratio 1.25 Amylase 97 (28-100) U/L Lipase 59 H (22-51) U/L Meds: Medications Generic Name Dose Route Start Last Admin Trade Name Freq PRN Reason Stop Dose Admin Sodium Chloride 500 mls @ 999 mls/hr 04/25/19 10:15 04/25/19 11:05 Normal Saline IV Infused .BOLUS BRII Infusion Sodium Chloride 10 ml 04/25/19 10:08 04/25/19 10:20 Saline Flush FLUSH 10 ml ASDIRECTED PRN Administration Keep Vein Open Discontinued Medications Generic Name Dose Route Start Last Admin Trade Name Freq PRN Reason Stop Dose Admin Ondansetron HCl 4 mg 04/25/19 10:08 04/25/19 10:23 Zofran IV 04/25/19 10:09 4 mg ONETIME ONE Administration Departure - Departure Disposition: DC/Tfer to Acute Hospital 02 Clinical Impression: Small bowel obstruction - Discharge Information Forms: ED Department Discharge, Interfacility Transfer EMTALA Sepsis Event Note - Evaluation Sepsis Screening Result: No Definite Risk - Focused Exam Vital Signs: Vital Signs Temp Pulse Resp BP Pulse Ox 04/25/19 09:56 98.4 F 109 H 18 137/74 100 Date Exam was Performed: 04/25/19 Time Exam was Performed: 11:28 - My Orders Last 24 Hours: My Active Orders 04/25/19 10:08 Sodium Chloride 0.9% [Saline Flush] 10 ml FLUSH ASDIRECTED PRN Peripheral IV Insertion Adult [OM.PC] Stat 04/25/19 10:09 Peripheral IV Care [RC] . DIRECTED 04/25/19 10:15 Sodium Chloride 0.9% [Normal Saline] 500 ml IV .BOLUS 04/25/19 10:26 Abdomen Pelvis wo Cont [CT] Stat - Assessment/Plan Last 24 Hours: My Active Orders 04/25/19 10:08 Sodium Chloride 0.9% [Saline Flush] 10 ml FLUSH ASDIRECTED PRN Peripheral IV Insertion Adult [OM.PC] Stat 04/25/19 10:09 Peripheral IV Care [RC] . DIRECTED 04/25/19 10:15 Sodium Chloride 0.9% [Normal Saline] 500 ml IV .BOLUS 04/25/19 10:26 Abdomen Pelvis wo Cont [CT] Stat <Srikanth Moraes - Last Filed: 04/25/19 11:35> Course - Radiology Interpretation Free Text/Narrative:: [facility] Final Radiology Report Call: [phone] assistance Online chat: [email or web address] Name: ALICIA GARCIA Age: 83Years F Date: 04/25/2019 SSN: -- : [id number] Study: CT ABDOMEN/PELVIS WO Requesting Physician: SRIKANTH MORAES Images: [id number] Addl Studies: Provided Clinical History: abd pain with distention, no bowel sounds, Hx SBO's Contrast: Without Contrast Medium: Contrast Amount: Contrast Method: Page 1 of 2 PROCEDURE INFORMATION: Exam: CT Abdomen And Pelvis Without Contrast Exam date and time: 04/25/2019 10:38 AM Age: 83 years old Clinical indication: Abdominal pain; Generalized; Additional info: Abd pain with distention, no bowel sounds, HX sbo's TECHNIQUE: Imaging protocol: Computed tomography of the abdomen and pelvis without contrast. Radiation optimization: All CT scans at this facility use at least one of these dose optimization techniques: automated exposure control; mA and/or kV adjustment per patient size (includes targeted exams where dose is matched to clinical indication); or iterative reconstruction. COMPARISON: CT Abdomen Pelvis wo Cont 04/03/2019 1:30 PM FINDINGS: Lungs: There is a nodule noted measuring 6.4 mm on image 2/3 involving the right lower lobe questionably pleural thickening as is adjacent to the fissure. This nodule may have been present previously but was only partially visualized in its most inferior aspect. Slight heterogenicity lung diggs persist. Heart: There may be a trace stable pericardial effusion. Mediastinum: There is a small hiatal hernia which is stable. Liver: There is a stable cyst in the left lobe of the liver with mild calcification of its wall measuring 20 x 27 mm. Gallbladder and bile ducts: The gallbladder is again removed. Pancreas: Normal. No ductal dilation. Spleen: Normal. No splenomegaly. Adrenals: Normal. No mass. Kidneys and ureters: There is a stable 4 mm peripheral right renal cyst. ALICIA GARCIA | Final Radiology Report CONFIDENTIALITY STATEMENT This report is intended only for use by the referring physician, and only in accordance with law. If you received this in error, call [phone]. Page 2 of 2 Stomach and bowel: Diffuse colonic diverticulosis persist. There is a new suture line noted involving small bowel in the mid abdomen. Appendix: No evidence of appendicitis. Intraperitoneal space: Unremarkable. No free air. No significant fluid collection. Vasculature: Vascular calcifications are unchanged. Lymph nodes: Unremarkable. No enlarged lymph nodes. Bladder: Unremarkable as visualized. Reproductive: There is a stable pessary. Bones/joints: Arthritic changes are stable in the spine. Soft tissues: There is a anterior abdominal wall hernia. On the left this contains fat on the right a small knuckle of transverse nonobstructed colon. Just inferior to this there is a periumbilical hernia containing small bowel loops. There slight dilatation of small bowel loops on the left measuring up to 29 mm. Other findings: There is a stable left mammographic implant. Is incompletely visualized. IMPRESSION: There is now a postoperative suture line involving small bowel. Small bowel loops are dilated slightly up to 32 mm with 2 areas of hernia. One contains nonobstructing: The other small bowel. This may represent a partial or intermittent obstruction but the bowel loops are definitely much less dilated than on the previous examination. Lung nodule. No prior CT scans of the chest are available in the CT that is being compared to partially demonstrates this. For patients at low risk (minimal or absent history of smoking and of other known risk factors), recommend CT at 6-12 months, then consider CT at 18-24 months. For patients at high risk (history of smoking or of other known risk factors), recommend CT at 6-12 months, then CT at 18-24 months. (Melonie et al., Fleischner Society, 2017) however, the patient has a mastectomy and if this was for breast cancer Fleischner criteria would not apply and follow-up would need to be made upon clinical grounds. Thank you for allowing us to participate in the care of your patient. Dictated and Authenticated by: Manav Carmen MD 04/25/2019 11:16 AM Central Time ([place] & [place]) - Re-Assessments/Exams Free Text/Narrative Re-Assessment/Exam: 04/25/19 11:31 I personally performed or re-performed the physical examination and medical decision making. I have verified all student documentation or findings, including history, physical exam and/or medical decision making. Free Text/Narrative Re-Assessment/Exam: 04/25/19 11:33 Pt with recurrent SBO's, and planned for surgical intervention in May (next month). I think the pt is too high of risks for high grade mechanical SBO based on her history to warrant admission here where no surgeon is available. Plan to transfer the pt to [facility] by [facility] ground ambulance with Dr. Hinson accepting the pt as a direct admit. Pt declines NG tube at this time, but will reconsider when she gets to [facility]. Departure - Departure Time of Disposition: 11:31 Condition: Serious - Discharge Information *PRESCRIPTION DRUG MONITORING PROGRAM REVIEWED*: No *COPY OF PRESCRIPTION DRUG MONITORING REPORT IN PATIENT KATRIN: No Sepsis Event Note - Focused Exam Date Exam was Performed: 04/25/19 Time Exam was Performed: 11:31"
[2019-04-25 10:50] LABS: ANION GAP 14.3
== END 2019-04-25 12:05 ==
LOC: DL.ED 09:56
DX: K56.609 Unspecified intestinal obstruction, unspecified as to partial versus complete obstruction (principal); E78.00 Pure hypercholesterolemia, unspecified; I12.9 Hypertensive chronic kidney disease with stage 1 through stage 4 chronic kidney disease, or unspecified chronic kidney disease; N18.9 Chronic kidney disease, unspecified; E66.9 Obesity, unspecified; Z88.8 Allergy status to other drugs, medicaments and biological substances; Z88.5 Allergy status to narcotic agent; Z88.0 Allergy status to penicillin; Z88.2 Allergy status to sulfonamides; Z79.82 Long term (current) use of aspirin; Z79.899 Other long term (current) drug therapy; Z68.31 Body mass index [BMI] 31.0-31.9, adult
CPT/HCPCS: 36415; 74176; 80053; 82150; 83605; 83690; 85025; 96361; 96374; 99285; J2405; J7040

== ENCOUNTER 2021-05-02 10:51 | Inpatient (IN) | payer MEDICARE, OTHER ==
[2021-05-02] MEDS ORDERED: Sodium Chloride 0.9% 10 ML Syringe FLUSH PRN (11:06)
[2021-05-02 11:48] LABS: PTT,PARTIAL THROMBOPLSTIN TIME 26.1 SEC (22.0-34.0)
[2021-05-02 11:57] LABS: ANION GAP 15.2 mEq/L (7-13); CHLORIDE,CL 105 mmol/L (98-107); SODIUM,NA 139 mmol/L (136-145)
[2021-05-02 12:04] LABS: CORONAVIRUS COVID-19 NAA NEGATIVE (NEGATIVE); RESPIRATORY SYNCYTIAL VIR NAA NEGATIVE (NEGATIVE)
[2021-05-02] MEDS ORDERED: Sodium Chloride 0.9% 1,000 ML IV ONE (12:17)
[2021-05-02] MEDS ORDERED: Iopamidol 612 MG/ML 100 ML Bottle IVPUSH ONE (12:18)
[2021-05-02] MEDS ORDERED: Acetaminophen 325 MG Tab PO PRN (12:42)
[2021-05-02] MEDS: Sodium Chloride 0.9% 1,000 ML IV SCH (12:45)
[2021-05-02] MEDS ORDERED: Iopamidol 755 Mg/ML 100 ML Bottle IVPUSH ONE (13:00)
[2021-05-02] MEDS ORDERED: DICLOFENAC SODIUM TOP PRN (16:17)
[2021-05-02] MEDS: Apixaban 5 MG Tab PO SCH (20:00)
[2021-05-02] MEDS: Simvastatin 10 MG Tab PO SCH (20:00)
[2021-05-03] MEDS: Sodium Chloride 0.9% 1,000 ML IV SCH (02:10)
[2021-05-03] MEDS: Omeprazole 20 MG Cap.CR PO SCH ×2 (06:13→16:13)
[2021-05-03 07:54] LABS: ANION GAP 16.2 mEq/L (7-13)
[2021-05-03] MEDS: Apixaban 5 MG Tab PO SCH ×2 (08:11→20:03)
[2021-05-03] MEDS: Oxybutynin 5 MG Tab.ER PO SCH (08:11)
[2021-05-03] MEDS: Simvastatin 10 MG Tab PO SCH (20:04)
[2021-05-04] MEDS: Omeprazole 20 MG Cap.CR PO SCH (05:12)
[2021-05-04 07:39] VITALS: BP 125/50; PULSE 57
[2021-05-04] MEDS: Apixaban 5 MG Tab PO SCH (08:03)
[2021-05-04 08:14] LABS: ANION GAP 11.5 mEq/L (7-13)
[2021-05-04] MEDS: Oxybutynin 5 MG Tab.ER PO SCH (08:58)
== END 2021-05-04 10:30 | disposition home or self-care (01) | DRG 66 ==
LOC: DL.ED 10:51 → DL.MS 12:38
PROVIDERS: ADMIT Internal Medicine; ATTEND Internal Medicine
DX: G45.9 Transient cerebral ischemic attack, unspecified (principal); I63.9 Cerebral infarction, unspecified; I48.91 Unspecified atrial fibrillation; E78.5 Hyperlipidemia, unspecified; I65.21 Occlusion and stenosis of right carotid artery; H54.7 Unspecified visual loss; E78.00 Pure hypercholesterolemia, unspecified; K57.90 Diverticulosis of intestine, part unspecified, without perforation or abscess without bleeding; Z85.820 Personal history of malignant melanoma of skin; N18.9 Chronic kidney disease, unspecified; M19.90 Unspecified osteoarthritis, unspecified site; M81.0 Age-related osteoporosis without current pathological fracture; E66.9 Obesity, unspecified; K21.9 Gastro-esophageal reflux disease without esophagitis; Z20.822 Contact with and (suspected) exposure to COVID-19; Z79.899 Other long term (current) drug therapy; Z88.8 Allergy status to other drugs, medicaments and biological substances; Z88.2 Allergy status to sulfonamides; Z88.0 Allergy status to penicillin; Z79.01 Long term (current) use of anticoagulants; Z85.3 Personal history of malignant neoplasm of breast; Z92.21 Personal history of antineoplastic chemotherapy; Z92.3 Personal history of irradiation; Z88.5 Allergy status to narcotic agent; Z79.82 Long term (current) use of aspirin; Z86.19 Personal history of other infectious and parasitic diseases; Z90.49 Acquired absence of other specified parts of digestive tract; Z98.890 Other specified postprocedural states; Z87.891 Personal history of nicotine dependence; Z87.440 Personal history of urinary (tract) infections; R20.2 Paresthesia of skin; I12.9 Hypertensive chronic kidney disease with stage 1 through stage 4 chronic kidney disease, or unspecified chronic kidney disease; Z68.33 Body mass index [BMI] 33.0-33.9, adult; R29.700 NIHSS score 0
CPT/HCPCS: 0241U; 36415; 70450; 70496; 70498; 71045; 80048; 80053; 80307; 82947; 83735; 84443; 84484; 85025; 85610; 85730; 86140; 93005; 97165-GO; 99285-25; A9270-GY; J7030; Q9967